=== PATIENT | female | born 1945 | race Caucasian/White ===

== ENCOUNTER 2018-05-13 20:09 | Inpatient (IN) ==
--- NOTE | 2018-05-14 01:07 | P.HPNS ---
History of Present Illness Service: NEUROSURGERY Primary Care Physician: UNKNOWN Chief Complaint: Chronic progressive low back pain History of Present Illness: I was contacted by Dr. Pérez Roberts from [facility] ER to accept in transfer, 73 yo female with an approximately 3 week history of a chronic progressive low back pain that worsened last night. [place] is s/p L4-S1 decompression and fusion about a year ago in the [facility]. She is also s/p bilateral hip surgery ( Left 06/23, Right 03/23) Doing well from all, until 3 weeks ago. She describes her LBP as radiating down BLE to level of her feet and sometimes only to the level of her knees.She relates that immobility has precluded her from emptying her bladder but denies bowel/bladder dysfunction. In addition she is on Fentanyl patches, oxycodone and a local Pain Management Physician has her on Morphine 2 tabs po. q.8h. MRI and CT scans were performed of the lumbar spine with a reported L1/2 disc herniation. I accepted her intransfer for definitive Neurosurgical evaluation and treatment. - Diagnosis (1) Low back pain of over 3 months duration (2) Low back pain of multiple sites of spine with sciatica Inpatient Certification: I certify that the inpatient services were ordered in accordance with Medicare regulations governing the order. This includes certification that hospital inpatient services are reasonable and necessary and in the case of services not specified as inpatient-only under 42 CFR 419.22(n), that they are appropriately provided as inpatient services in accordance to with the 2-midnight benchmark under 43 CFR 412.3(e) Plans for Post Hospital Care: Not yet determined Review of Systems All other systems reviewed negative except as stated [facility] - History History Provided By: Patient - Medical History Medical History: Medical History (Last Reviewed 05/14/18 @ 01:08 by Luciano Rubalcava MD) Cataract HTN (hypertension) History of hysterectomy Varicose vein of leg - Surgical History Surgical History: Surgical History (Last Reviewed 05/14/18 @ 01:08 by Luciano Rubalcava MD) Hip joint replacement status History of lumbar fusion LAP-BAND surgery status Status post complete thyroidectomy Total knee replacement status - Social History I have reviewed the patient's Social History: Yes - Tobacco History Second Hand Smoke Exposure: No Tobacco Use In Past 30 Days: No Smoking Status: Former smoker - Alcohol History How Often Do You Have a Drink Containing Alcohol: Never - Substance Use History Substance History: No History of Abuse - Immunization History Tetanus Immunization: Unsure Hx Influenza Vaccine This Season: Yes Medications and Allergies Allergies Allergy/AdvReac Type Severity Reaction Status Date / Time tramadol Allergy Severe Anaphylaxis Verified 05/13/18 23:50 moxifloxacin [From Avelox] Allergy Mild Itching, Verified 05/13/18 23:52 Generalized Home Medications Medication Instructions Recorded Confirmed Type amlodipine-benazepril 1 cap PO DAILY 05/13/18 05/13/18 History atorvastatin 10 mg PO DAILY 05/14/18 05/14/18 History carisoprodol 350 mg PO 05/14/18 05/14/18 History fentanyl 75 mcg/hr TRANSDERMAL 05/14/18 History gabapentin 300 mg PO TID 05/14/18 05/14/18 History levothyroxine [Synthroid] 137 mcg PO DAILY 05/14/18 05/14/18 History Exam Vital signs: Vital Signs 05/13/18 23:05 Temperature 98.2 F Pulse Rate 80 Respiratory Rate 18 Blood Pressure 164/79 H Pulse Oximetry 94 L Intake & Output 05/13/18 05/13/18 05/14/18 06:59 18:59 06:59 Weight 105 kg Other: Date of Last Bowel Movement 05/12/18 Weight On Admission 105 kg - Constitutional moderate distress, morbidly obese, cooperative - Routine HEENT Exam Head: Present: normocephalic, atraumatic Eye: Present: EOMI, PERRL, normal accommodation ENT: Present: mucous membranes moist, oropharynx clear - Routine Neck Exam Present: supple, full ROM, trachea midline - Routine Abdominal Exam Present: soft, normoactive bowel sounds - Routine Rectal Exam Visual: Present: normal rectal tone - Routine Exam Comments: [place] Catheter in place ( Outside Hospital) - Routine Extremities Exam Present: full ROM, pulses intact, normal capillary refill - Routine Skin Exam Present: intact - Routine Neurological Exam Present: alert, oriented X3, CN II-XII intact, normal reflexes, moving all extremities, normal tone, vision grossly intact, hearing grossly intact, normal speech - Routine Psychiatric Exam Present: normal affect, normal thought process Caprini VTE Risk Assessment Caprini VTE Risk Assessment: Moderate/High Risk (score >= 2) Caprini Risk Assessment Model: Point Value = 1 Point Value = 2 Point Value = 3 Point Value = 5 Age 41-60 Minor surgery BMI > 25 kg/m2 Swollen legs Varicose veins or History of unexplained or recurrent spontaneous Oral contraceptives or hormone replacement Sepsis (< 1 month) Serious lung disease, including pneumonia (< 1 month) Abnormal pulmonary function Acute myocardial infarction Congestive heart failure (< 1 month) History of inflammatory bowel disease Medical patient at bed rest Age 61-74 Arthroscopic surgery Major open surgery (> 45 min) Laparoscopic surgery (> 45 min) Malignancy Confined to bed (> 72 hours) Immobilizing plaster cast Central venous access Age >= 75 History of VTE Family history of VTE Factor V Leiden Prothrombin [id number] Lupus anticoagulant Anticardiolipin antibodies Elevated serum homocysteine Heparin-induced thrombocytopenia Other congenital or acquired thrombophilia Stroke (< 1 month) Elective arthroplasty Hip, pelvis, or leg fracture Acute spinal cord injury (< 1 month) Prophylaxis Regimen: Total Risk Factor Score Risk Level Prophylaxis Regimen 0-1 Low Early ambulation 2 Moderate Order ONE of the following: *Sequential Compression Device (SCD) *Heparin 5000 units SQ BID 3-4 Higher Order ONE of the following medications: *Heparin 5000 units SQ TID *Enoxaparin/Lovenox 40 mg SQ daily (WT < 150 kg, CrCl > 30 mL/min) *Enoxaparin/Lovenox 30 mg SQ daily (WT < 150 kg, CrCl > 10-29 mL/min) *Enoxaparin/Lovenox 30 mg SQ BID (WT < 150 kg, CrCl > 30 mL/min) AND/OR *Sequential Compression Device (SCD) 5 or more Highest Order ONE of the following medications: *Heparin 5000 units SQ TID (Preferred with Epidurals) *Enoxaparin/Lovenox 40 mg SQ daily (WT < 150 kg, CrCl > 30 mL/min) *Enoxaparin/Lovenox 30 mg SQ daily (WT < 150 kg, CrCl > 10-29 mL/min) *Enoxaparin/Lovenox 30 mg SQ BID (WT < 150 kg, CrCl > 30 mL/min) AND *Sequential Compression Device (SCD) Assessment and Plan - Assessment (1) Low back pain of over 3 months duration Code(s): M54.5 - Low back pain; G89.29 - Other chronic pain Status: Chronic (2) Low back pain of multiple sites of spine with sciatica Code(s): M54.40 - Lumbago with sciatica, unspecified side Status: Chronic - Plan A/P 73 year old female with 3 week history of chronic progressive low back pain with radiation to BLE down to the feet mostly occassionally knees. Neuro: Non-focal Admit to Neurosurgery Neuro Checks q 4 hrs. Pain Control L-spine flex/ext views PT/OT H&P: Quality - VTE Deep Vein Thrombosis/Pulmonary Embolism Present on Admission: No
[2018-05-14] MEDS ORDERED: Gabapentin 300 MG Capsule PO SCH (01:45)
[2018-05-14] MEDS ORDERED: Calcium Gluconate Inj 1 GM in Sodium Chlor 0.9% Inj 100 ML IV.SIG PRN (01:54)
[2018-05-14] MEDS ORDERED: Acetaminophen 325 MG Tablet PO PRN (01:54)
[2018-05-14] MEDS ORDERED: Bisacodyl 10 MG Supp RECTAL PRN (01:54)
[2018-05-14] MEDS: Methocarbamol 500 MG Tablet PO SCH ×4 (02:28→20:59)
[2018-05-14] MEDS: Senna/Docusate Sodium 8.6/50 MG Tablet PO SCH ×3 (02:29→20:59)
[2018-05-14 04:24] LABS: Baso % (Auto) 0.4 % (0.0-2.0); Eos # (Auto) 0.2 th/mm3 (0.0-0.4); Eos % (Auto) 1.7 % (0.0-4.0); Hematocrit 38.6 % (35.0-46.0); Hemoglobin 12.7 gm/dL (11.6-15.3); Lymph # (Auto) 1.1 th/mm3 (1.0-4.8); Lymph % (Auto) 10.4 % (9.0-44.0); Mean Corpuscular HGB Conc 33.1 % (32.0-36.0); Mean Corpuscular Hemoglobin 29.7 pg (27.0-34.0); Mono # (Auto) 0.7 th/mm3 (0.0-0.9); Mono % (Auto) 7.3 % (0.0-8.0); Neut # (Auto) 8.2 th/mm3 (1.8-7.7); Neut % (Auto) 80.2 % (16.0-70.0); Platelet Count 180 th/mm3 (150-450); Red Blood Count 4.29 mil/mm3 (4.00-5.30); Red Cell Distribution Width 14.1 % (11.6-17.2); White Blood Count 10.2 th/mm3 (4.0-11.0)
[2018-05-14 04:32] LABS: Activated Partial Thrombo Time 26.3 sec (23.4-31.7); Prothrombin Time 10.6 sec (9.8-11.6)
[2018-05-14 04:44] LABS: Calcium 8.1 mg/dL (8.5-10.1); Potassium 3.9 meq/L (3.5-5.1)
[2018-05-14] MEDS: Levothyroxine 112 MCG Tablet PO SCH (05:36)
[2018-05-14] MEDS: Heparin - SQ 10,000 UNITS/ML Vial SQ SCH ×3 (05:37→20:59)
[2018-05-14] MEDS: Gabapentin 400 MG Capsule PO SCH ×5 (08:04→17:22)
[2018-05-14] MEDS: amLODIPine 5 MG Tablet PO SCH (08:04)
[2018-05-14] MEDS: Lisinopril 20 MG Tablet PO SCH (08:04)
[2018-05-14] MEDS ORDERED: Non-Formulary Drug (Amlodipine-Benazepril [Amlodipine-Benazepril] 1 CAP) PO SCH (09:00)
--- NOTE | 2018-05-14 13:29 | P.PNNS ---
Subjective Interval history: HD#1 The patient is a 73 yo female with an approximately 3 week history of a chronic progressive low back pain that worsened two nights.ago She is s/p L4-S1 decompression and fusion about a year ago in the [facility]. She is also s/p bilateral hip surgery ( Left 06/23, Right 03/23) Doing well from all, until about 3 weeks ago. She describes her LBP as radiating down BLE to level of her feet and sometimes only to the level of her knees.She relates that immobility has precluded her from emptying her bladder but denies bowel/bladder dysfunction. In addition she is on Fentanyl patches, oxycodone and a local Pain Management Physician has her on Morphine 2 tabs po. q.8h. MRI and CT scans were performed of the lumbar spine with a reported L1/2 disc herniation. Overnight her pain better controlled with increased Gabapentin and Robaxin Physical Exam Vital signs: Vital Signs 05/13/18 23:05 05/14/18 04:00 05/14/18 06:50 Temperature 98.2 F 98.2 F Pulse Rate 80 65 Respiratory Rate 18 18 16 Blood Pressure 164/79 H 141/76 H Pulse Oximetry 94 L 94 L 05/14/18 08:00 05/14/18 11:27 Temperature 97.6 F 98.6 F Pulse Rate 65 79 Respiratory Rate 12 17 Blood Pressure 151/71 H 126/58 L Pulse Oximetry 94 L 95 Intake & Output 05/13/18 05/14/18 05/14/18 18:59 06:59 18:59 Output Total 600 / 600 Balance -600 / -600 Weight 105.5 kg Output: Urine 600 / 600 Other: Date of Last Bowel Movement 05/12/18 05/12/18 Weight On Admission 105 kg - Constitutional Comments: 73 yo female in moderate discomfort secondary to LBP, bilateral hip pain and radicular symptoms - Routine HEENT Exam Head: Present: normocephalic, atraumatic, tenderness of temporal artery Eye: Present: EOMI, normal accommodation ENT: Present: mucous membranes moist, oropharynx clear - Routine Neck Exam Present: supple, full ROM, normal carotid upstroke - Routine Abdominal Exam Present: soft, normoactive bowel sounds - Routine Rectal Exam Visual: Present: normal rectal tone - Routine Exam Comments: perianal sensation normal - Routine Skin Exam Present: intact - Routine Neurological Exam Neuro: MS- AAOx3 Speech- fluent CNII-XII- intact Motor 5/5, R=L, neg. drift Sensory- decreased to LT, PP in Left L5 distribution intermittently Cerebellum- WNL Gait not tested due to severe pain - Urinary Catheter Management Indwelling Urethral Catheter Cath placed during this visit: yes Reason for continuing: Acute urinary retention Insertion date: 05/13/18 Assessment and Plan - Assessment (1) Low back pain of over 3 months duration Code(s): M54.5 - Low back pain; G89.29 - Other chronic pain Status: Chronic (2) Low back pain of multiple sites of spine with sciatica Code(s): M54.40 - Lumbago with sciatica, unspecified side Status: Chronic - Plan A/P 73 year old female with 3 week history of chronic progressive low back pain with radiation to BLE down to the feet mostly occassionally knees. Neuro: Non-focal Admit to Neurosurgery Neuro Checks q 4 hrs. Pain Control L-spine flex/ext views pending emg/ncs of bilateral lower extremities PT/OT Discussed Condition With: Patient
[2018-05-15] MEDS: Levothyroxine 112 MCG Tablet PO SCH (05:12)
[2018-05-15] MEDS: Methocarbamol 500 MG Tablet PO SCH ×3 (05:12→23:13)
[2018-05-15] MEDS: Heparin - SQ 10,000 UNITS/ML Vial SQ SCH ×3 (05:13→23:12)
[2018-05-15] MEDS: Lisinopril 20 MG Tablet PO SCH (08:22)
[2018-05-15] MEDS: amLODIPine 5 MG Tablet PO SCH (08:22)
[2018-05-15] MEDS: Senna/Docusate Sodium 8.6/50 MG Tablet PO SCH ×2 (08:22→23:13)
[2018-05-15] MEDS: Gabapentin 400 MG Capsule PO SCH ×2 (08:22→15:05)
[2018-05-15] MEDS: Polyethylene Glycol 3350 17 GM Packet PO SCH ×2 (10:37→23:12)
--- NOTE | 2018-05-15 15:37 | P.PNNS ---
Subjective Interval history: HD#1 The patient is a 73 yo female with an approximately 3 week history of a chronic progressive low back pain that worsened two nights.ago She is s/p L4-S1 decompression and fusion about a year ago in the [facility]. She is also s/p bilateral hip surgery ( Left 06/23, Right 03/23) Doing well from all, until about 3 weeks ago. She describes her LBP as radiating down BLE to level of her feet and sometimes only to the level of her knees.She relates that immobility has precluded her from emptying her bladder but denies bowel/bladder dysfunction. In addition she is on Fentanyl patches, oxycodone and a local Pain Management Physician has her on Morphine 2 tabs po. q.8h. MRI and CT scans were performed of the lumbar spine with a reported L1/2 disc herniation. Overnight her pain better controlled with increased Gabapentin and Robaxin HD#2 Patient now complains of midback as well as a T-10 level back pain with radicular symptoms Physical Exam Vital signs: Vital Signs 05/14/18 16:00 05/14/18 17:23 05/14/18 19:15 Temperature 98.2 F 98.1 F Pulse Rate 71 82 Respiratory Rate 16 16 18 Blood Pressure 130/62 184/99 H Pulse Oximetry 94 L 95 05/14/18 19:17 05/14/18 20:49 05/15/18 04:05 Temperature 98.1 F 98 F Pulse Rate 81 74 62 Respiratory Rate 19 18 Blood Pressure 184/99 H 129/72 146/65 H Pulse Oximetry 92 L 93 L 05/15/18 08:00 05/15/18 11:02 Temperature 97.6 F 97.7 F Pulse Rate 63 65 Respiratory Rate 17 17 Blood Pressure 129/65 114/56 L Pulse Oximetry 92 L 95 Intake & Output 05/14/18 05/15/18 05/15/18 18:59 06:59 18:59 Intake Total 480 / 480 200 / 200 Output Total 650 / 650 1000 / 1000 375 / 375 Balance -170 / -170 -800 / -800 -375 / -375 Weight 105.5 kg Intake: Oral 480 / 480 200 / 200 Output: Urine 650 / 650 1000 / 1000 375 / 375 Other: Date of Last Bowel Movement 05/12/18 05/12/18 # Bowel Movements 0 - Constitutional moderate distress Comments: New onset mid- back pain - Routine HEENT Exam Head: Present: normocephalic, atraumatic Eye: Present: EOMI, PERRL, normal accommodation ENT: Present: mucous membranes moist, oropharynx clear - Routine Neck Exam Present: supple, full ROM - Routine Respiratory Exam Present: CTA bilaterally - Routine Cardiovascular Exam Present: RRR - Routine Abdominal Exam Present: soft, normoactive bowel sounds - Routine Rectal Exam Patient deferred: visual exam - Routine Exam Patient deferred: external exam Comments: Neuro: MS- AAOx3 Speech- fluent CNII-XII- intact Motor 5/5, R=L, neg. drift Sensory- decreased to LT, PP in Left L5 distribution intermittently Cerebellum- WNL Gait not tested due to severe pain - Routine Extremities Exam Comments: Negative CCE - Routine Skin Exam Present: intact, warm, normal turgor - Routine Psychiatric Exam Present: normal affect - Urinary Catheter Management Indwelling Urethral Catheter Cath placed during this visit: yes Reason for continuing: Acute urinary retention Insertion date: 05/13/18 Assessment and Plan - Assessment (1) Low back pain of over 3 months duration Code(s): M54.5 - Low back pain; G89.29 - Other chronic pain Status: Chronic (2) Low back pain of multiple sites of spine with sciatica Code(s): M54.40 - Lumbago with sciatica, unspecified side Status: Chronic - Plan A/P 73 year old female with 3 week history of chronic progressive low back pain with radiation to BLE down to the feet mostly occassionally knees.Now c/o new onset mid-back pain and T-10 level radicular symptoms Neuro: Non-focal Neuro Checks q 4 hrs. Pain Control, will increase Gabapentin Bowel regimen L-spine flex/ext views pending T and L-spine MRI emg/ncs of bilateral lower extremities OOB PT/OT
--- NOTE | 2018-05-15 17:27 | XR ---
EXAM DATE: 05/15/2018 5:23 PM EST AGE/SEX: 73 years / Female INDICATIONS: Left hip pain from unknown injury. CLINICAL DATA: This is the patient's initial encounter. Patient reports that signs and symptoms have been present for 1 day and indicates a pain score of Nonresponsive. MEDICAL/SURGICAL HISTORY: None. . Left hip replacement. Right hip replacement. Lower back surge ry. COMPARISON: No prior exams available for comparison. FINDINGS: AP and oblique views of the left hip were obtained as well as an AP view of the pelvis and demonstrat e the patient is status post a lateral hip arthroplasty. The femoral and acetabular components are in tact with no evidence of fracture or loosening. There is mild osteopenia. Postoperative changes are n oted in the pelvis. Postoperative changes are also noted in the lower lumbar spine. CONCLUSION: Status post bilateral hip arthroplasties with no underlying bony abnormality. Electronically signed by: Carlos Omalley MD 05/15/2018 5:25 PM EST
--- NOTE | 2018-05-15 17:32 | XR ---
EXAM DATE: 05/15/2018 5:26 PM EST AGE/SEX: 73 years / Female INDICATIONS: Right hip pain from unknown injury. CLINICAL DATA: This is the patient's initial encounter. Patient reports that signs and symptoms have been present for 1 day and indicates a pain score of Nonresponsive. MEDICAL/SURGICAL HISTORY: None. . Left hip replacement. Right hip replacement. Lower back surge ry. COMPARISON: No prior exams available for comparison. FINDINGS: AP and frog-leg lateral views of the right hip were obtained and demonstrate the patient is status po st right hip arthroplasty. The acetabular and femoral components are intact and in normal alignment. There is mild osteopenia. There is no evidence of fracture or underlying bony abnormality. The soft t issues appear unremarkable. CONCLUSION: Status post right hip arthroplasty with no underlying bony abnormality. Electronically signed by: Carlos Omalley MD 05/15/2018 5:30 PM EST
--- NOTE | 2018-05-15 17:34 | XR ---
EXAM DATE: 05/15/2018 5:29 PM EST AGE/SEX: 73 years / Female INDICATIONS: Lower back pain from unknown injury. CLINICAL DATA: This is the patient's initial encounter. Patient reports that signs and symptoms have been present for 1 day and indicates a pain score of 10/10. MEDICAL/SURGICAL HISTORY: None. . Left hip replacement. Right hip replacement. Lower back surge ry. COMPARISON: No prior exams available for comparison. FINDINGS: AP and lateral views of the lumbar spine were obtained and demonstrate that the patient is status pos t laminectomy and fusion at the L4-5 and L5-S1 levels with bilateral pedicle screws and posterior fix ation rods. Diffuse degenerative disc changes are noted with disc space narrowing and hypertrophic ch gómez with sparing at the L5-S1 level. There is mild osteopenia with no acute fracture. There is a mil d scoliosis. The sacrum is intact. CONCLUSION: 1. Status post laminectomy and fusion at the L4-5 and L5-S1 levels. 2. Moderate degenerative disc change in the lower thoracic and lumbar spine with sparing at the L5-S 1 level. 3. Osteopenia and mild scoliosis. Electronically signed by: Carlos Omalley MD 05/15/2018 5:33 PM EST
[2018-05-15] MEDS: Gabapentin 300 MG Capsule PO SCH (18:43)
[2018-05-16] MEDS: Levothyroxine 112 MCG Tablet PO SCH (05:20)
[2018-05-16] MEDS: Heparin - SQ 10,000 UNITS/ML Vial SQ SCH ×3 (05:21→23:34)
[2018-05-16] MEDS: Methocarbamol 500 MG Tablet PO SCH ×3 (05:21→23:32)
[2018-05-16] MEDS: Gabapentin 300 MG Capsule PO SCH ×2 (08:18→13:02)
[2018-05-16] MEDS: amLODIPine 5 MG Tablet PO SCH (08:18)
[2018-05-16] MEDS: Senna/Docusate Sodium 8.6/50 MG Tablet PO SCH ×2 (08:18→23:33)
[2018-05-16] MEDS: Lisinopril 20 MG Tablet PO SCH (08:19)
[2018-05-16] MEDS: Polyethylene Glycol 3350 17 GM Packet PO SCH ×2 (08:19→23:33)
--- NOTE | 2018-05-16 12:19 | MR ---
EXAM DATE: 05/16/2018 11:59 AM EST AGE/SEX: 73 years / Female INDICATIONS: . New onset mid-back pain with radiculopathy. Degeneration of disc. CLINICAL DATA: This is the patient's subsequent encounter. Patient reports that signs and symptoms h ave been present for 3 days and indicates a pain score of 7/10. MEDICAL/SURGICAL HISTORY: None. Fusion, lumbar. Lap band. Bilateral hip replacements. COMPARISON: OUT, CT OUTSIDE FACILITY, 05/13/2018. . TECHNIQUE: Multiplanar, multisequence MRI of the thoracic spine was performed. FINDINGS: Vertebrae: Normal vertebral body height. Cavernous hemangiomas are noted in the T5, T10 and T12 vert ebral bodies with high signal on T1-weighted images. There is mild marrow edema in the L1 vertebral b jazmine. Alignment: Normal. Discs: Diffuse degenerative disc changes are present with desiccation, disc space narrowing and mild hypertrophic changes. Anterior extradural defects are noted at multiple levels. Cord: Normal position and configuration. T1-T2: There is a mild annular disc bulge with minimal flattening of the anterior thecal sac and no focal protrusion. T2-T3: There is a mild annular disc bulge with minimal flattening of the anterior thecal sac and no focal protrusion. T3-T4: There is a mild annular disc bulge with mild flattening of the anterior thecal sac and no foc al protrusion. T4-T5: Mild disc bulge with minimal flattening of the anterior thecal sac. T5-T6: The thecal sac has a normal diameter. No evidence of disc bulge or protrusion. T6-T7: The thecal sac has a normal diameter. No evidence of disc bulge or protrusion. T7-T8: The thecal sac has a normal diameter. No evidence of disc bulge or protrusion. T8-T9: Mild annular disc bulge with mild flattening of the anterior thecal sac and no focal protrusi on. T9-T10: The thecal sac has a normal diameter. No evidence of disc bulge or protrusion. T10-T11: The thecal sac has a normal diameter. No evidence of disc bulge or protrusion. T11-T12: The thecal sac has a normal diameter. No evidence of disc bulge or protrusion. A large hi gh signal mass is noted in the liver which is lobular and measures up to approximately 5.8 x 4.4 cm. T12-L1: Broad-based posterior disc osteophyte complex with mass effect on the anterior thecal sac an d no mass effect on the cord. CONCLUSION: 1. Degenerative disc changes with disc bulges at multiple levels with mass effect on the anterior th ecal sac and no definite mass effect on the cord. 2. Broad-based disc osteophyte complex at T12-L1 with mass effect on the anterior thecal sac. 3. Large mass in the medial right lobe of the liver with high signal on the T2-weighted images. This is nonspecific but may represent a large cavernous hemangioma. This should be correlated with any ol d prior studies. Electronically signed by: Carlos Omalley MD 05/16/2018 12:18 PM EST
[2018-05-16] MEDS ORDERED: Gadobutrol PF 10 MMOL/10 ML Vial (for RAD) IV.SIG ONE (12:42)
--- NOTE | 2018-05-16 13:36 | MR ---
EXAM DATE: 05/16/2018 12:35 PM EST AGE/SEX: 73 years / Female INDICATIONS: Pain. Post L4-S1 fusion. CLINICAL DATA: This is the patient's subsequent encounter. Patient reports that signs and symptoms h ave been present for 3 days and indicates a pain score of 7/10. MEDICAL/SURGICAL HISTORY: None. Fusion, lumbar. Lap band. Bilateral hip surgery. COMPARISON: No prior exams available for comparison. TECHNIQUE: Multiplanar, multisequence MRI examination of the lumbar spine was performed without and with 10 ml Gadavist (gadobutrol) contrast as a single exam dose. FINDINGS: ALIGNMENT: Vertebral bodies are satisfactorily aligned without evidence of listhesis. FACET AND OSSEOUS STRUCTURES: Postsurgical changes following laminectomy and fusion are identified in the lower lumbar spine. Laminectomy defect extending from mid L4 through the top of S1 is noted. Pos terior fusion apparatus consisting of parallel rods with transpedicular fixation screws are noted fro m L4 through S1. A fluid collection is identified along the laminectomy defect posterior to the thecal sac. The collec tion measures 4.5 cm in length by 1.7 cm in depth and 3.3 cm in width. There is no evidence of abnorm al enhancement associated with the collection. Vertebral body height is otherwise well-maintained. There is no evidence of acute fracture, bone mar row edema or destructive changes. Moderate facet arthropathy is identified at L1-2, L2-3 and L3-4. There is joint space narrowing with mild hypertrophy. INTERVERTEBRAL DISC SPACES: Significant degenerative disc disease is noted. L1-2: Moderate disc space narrowing with mild broad-based disc bulge and marginal disc osteophyte com plex. There is no evidence of significant epidural disc herniation, foraminal encroachment or spinal stenosis. L2-3: Moderate degenerative disc disease with significant disc space narrowing. There is marginal dis c osteophyte complex with mild foraminal stenosis on the right and moderate foraminal stenosis on the left. There is no significant epidural disc herniation. L3-4: Mild to moderate degenerative disc disease with disc space narrowing. Mild broad-based disc ost eophyte complex is identified. There is significant posterior epidural effacement from thickened liga mentum flavum resulting in mild spinal stenosis. L4-5: Advanced degenerative disc disease with collapse of the disc where there is marginal spondylosi s. There is no evidence of disc herniation. Mild foraminal stenosis is seen bilaterally. Spinal canal is widely patent. L5-S1: Vertebral disc is unremarkable. Increased fat is identified in the anterior epidural space. Th ere is no evidence of spinal stenosis or significant foraminal encroachment. NEUROLOGIC STRUCTURES: A soft tissue mass is identified within the left side of the spinal canal at t he L2 level. The mass begins at the L1-2 disc space and extends inferiorly to the lower margin of L2. The mass appears to be extradural in location since there is no widening of the thecal sac at the le marci the mass and there is rightward displacement of the nerve roots. Rim enhancement is identified wi thin the mass following administration of contrast. The mass measures 1.3 x 1 x 2.1 cm in size. Clumping of the nerve roots within the thecal sac is identified through the laminectomy site. Mild ne rve root enhancement is noted. CONCLUSION: 1. Extradural soft tissue mass with rim enhancement located in the left lateral spinal canal at the L2 level. Differential diagnoses would include a neurogenic tumor, atypical disc herniation or metast atic disease. 2. Clumped enhancing nerve roots in the lower thecal sac through the laminectomy defect characterist ic of arachnoiditis. 3. Mild central spinal stenosis at L3-4 predominantly from hypertrophic facet arthropathy. 4. Posterior post laminectomy fluid collection characteristic of a postsurgical seroma. There is no discrete connection with the spinal canal or thecal sac. 5. Status post laminectomy and fusion from L4 through S1. Electronically signed by: Darryl Loyd MD 05/16/2018 1:34 PM EST
[2018-05-16] MEDS ORDERED: ceFAZolin 2 GM Premix Inj 2 GM/50 ML PIGGYBACK IV.SIG PRN (14:50)
--- NOTE | 2018-05-16 16:25 | XR ---
EXAM DATE: 05/16/2018 4:21 PM EST AGE/SEX: 73 years / Female INDICATIONS: Evaluate for pneumonia, pneumothorax, or communicable disease. Per op for back surgery. CLINICAL DATA: This is the patient's initial encounter. Patient reports that signs and symptoms have been present for 4 - 6 days and indicates a pain score of 10/10. MEDICAL/SURGICAL HISTORY: None. . Fusion, lumbar. Lap band. Bilateral hip surgery. COMPARISON: No prior exams available for comparison. FINDINGS: AP and lateral views of the chest demonstrate the lungs to be symmetrically aerated without evidence of mass, infiltrate or effusion. Heart upper limits of normal in size. The cardiomediastinal contours are unremarkable. Osseous structures are intact. Degenerative changes thoracic spine. CONCLUSION: No acute cardiopulmonary disease Electronically signed by: Moshe Moe MD 05/16/2018 4:24 PM EST
[2018-05-16 16:47] LABS: Baso # (Auto) 0.1 th/mm3 (0.0-0.2); Baso % (Auto) 0.6 % (0.0-2.0); Eos # (Auto) 0.2 th/mm3 (0.0-0.4); Hematocrit 40.3 % (35.0-46.0); Lymph # (Auto) 1.1 th/mm3 (1.0-4.8); Lymph % (Auto) 13.6 % (9.0-44.0); Mean Corpuscular HGB Conc 34.7 % (32.0-36.0); Mean Corpuscular Hemoglobin 31.3 pg (27.0-34.0); Mean Platelet Volume 9.2 fL (7.0-11.0); Mono # (Auto) 0.6 th/mm3 (0.0-0.9); Mono % (Auto) 6.9 % (0.0-8.0); Neut # (Auto) 6.4 th/mm3 (1.8-7.7); Neut % (Auto) 76.9 % (16.0-70.0); Platelet Count 225 th/mm3 (150-450); Red Blood Count 4.47 mil/mm3 (4.00-5.30); Red Cell Distribution Width 14.1 % (11.6-17.2); White Blood Count 8.4 th/mm3 (4.0-11.0)
[2018-05-16 17:44] LABS: Carbon Dioxide 35.3 meq/L (21.0-32.0)
[2018-05-16 23:51] LABS: Bilirubin,Urine Negative (Negative); Clarity,Urine Clear (Clear); Color,Urine Yellow (Yellw/Straw); Glucose,Urine (UA) Negative (Negative); Leukocyte Esterase,Urine Negative (Negative); Mucus,Urine Few /lpf (Occasional); Nitrite,Urine Negative (Negative); Specific Gravity,Urine 1.006 (1.002-1.035)
[2018-05-17] MEDS: Gabapentin 300 MG Capsule PO SCH ×4 (06:51→17:43)
[2018-05-17] MEDS: Methocarbamol 500 MG Tablet PO SCH ×3 (06:51→21:50)
[2018-05-17] MEDS ORDERED: Bupivacaine 0.25% Inj 50 ML MDV Vial ONE (07:06)
[2018-05-17] MEDS ORDERED: Thrombin Topical Soln 5,000 UNIT Vial TOPICAL ONE (07:06)
[2018-05-17] MEDS ORDERED: Gelatin Size 100 Topical Foam ONE (07:06)
[2018-05-17] MEDS ORDERED: Lidocaine 1%/Epinephrine 1:100,000 Inj 50 ML Vial ONE (07:06)
[2018-05-17] MEDS: Heparin - SQ 10,000 UNITS/ML Vial SQ SCH ×3 (07:17→21:51)
[2018-05-17] MEDS: Levothyroxine 112 MCG Tablet PO SCH (07:18)
[2018-05-17 08:23] LABS: Activated Partial Thrombo Time 26.1 sec (23.4-31.7); INR 1.1 Ratio; Prothrombin Time 10.8 sec (9.8-11.6)
[2018-05-17] MEDS ORDERED: BACITRACIN OTHER ONE (08:30)
[2018-05-17] MEDS ORDERED: SOD CHLORIDE 0.9% OTHER ONE (08:30)
[2018-05-17] MEDS ORDERED: Propofol Inj 500 MG/50 ML Vial ONE (09:19)
[2018-05-17] MEDS ORDERED: ceFAZolin 1 GM Premix Inj 2 GM/100 ML PIGGYBACK IV.SIG ONE (10:05)
[2018-05-17] MEDS ORDERED: MethylPREDNISolone Sod Succinate Inj 125 MG/2 ML Vial ONE (10:05)
[2018-05-17] MEDS ORDERED: RESP: Albuterol Concentrated 2.5 MG/0.5 ML Neb ONE (10:23)
--- NOTE | 2018-05-17 11:43 | XR ---
EXAM DATE: 05/17/2018 11:29 AM EST AGE/SEX: 73 years / Female INDICATIONS: L1-L2 laminectomy, level localization. CLINICAL DATA: This is the patient's initial encounter. Patient reports that signs and symptoms have been present for 1 day and indicates a pain score of Nonresponsive. MEDICAL/SURGICAL HISTORY: Non-responsive. Non-responsive. [place] [facility] [facility] [place] W [place] W/O CONTRAST, [place]/16/2018. . FINDINGS: Metallic probe directed at the L1-2 interspace. CONCLUSION: Probe directed towards the L1-2 interspace Electronically signed by: Lorenzo Carranza MD 05/17/2018 11:42 AM EST
[2018-05-17] MEDS ORDERED: Sugammadex Inj 200 MG/2 ML Vial IV.PUSH ONE (12:07)
[2018-05-17] MEDS ORDERED: Menthol 5.8 MG Lozenge BUCCAL PRN (12:44)
[2018-05-17] MEDS ORDERED: Morphine Sulfate Inj 2 MG/ML Vial IV.PUSH PRN (12:44)
[2018-05-17] MEDS ORDERED: Bisacodyl 10 MG Supp RECTAL PRN (12:44)
[2018-05-17] MEDS ORDERED: Zolpidem Tartrate 5 MG Tablet PO PRN (12:44)
--- NOTE | 2018-05-17 12:52 | P.PCN ---
Date of procedure: 05/17/18 Pre-op diagnosis: Left L1/2 facet cyst and herniated disc Post-op diagnosis: other Procedure: Left hemilaminectomy, partial medial facetectomy and microdiscectomy Anesthesia: VISHAL Surgeon: Luciano Rubalcava Baby Attendant: Pancho Stafford Estimated blood loss (mL): 75 IV fluids (mL): 1,600 Urine output (mL): 150 Pathology: other Condition: stable Disposition: floor (large old extruded disc material, multiple fragments, with large adherent scar formation between ligamentum flavu, dura and disc.)
--- NOTE | 2018-05-17 13:00 | P.PNNS ---
Subjective Interval history: HD#1 The patient is a 73 yo female with an approximately 3 week history of a chronic progressive low back pain that worsened two nights.ago She is s/p L4-S1 decompression and fusion about a year ago in the [facility]. She is also s/p bilateral hip surgery ( Left 06/23, Right 03/23) Doing well from all, until about 3 weeks ago. She describes her LBP as radiating down BLE to level of her feet and sometimes only to the level of her knees.She relates that immobility has precluded her from emptying her bladder but denies bowel/bladder dysfunction. In addition she is on Fentanyl patches, oxycodone and a local Pain Management Physician has her on Morphine 2 tabs po. q.8h. MRI and CT scans were performed of the lumbar spine with a reported L1/2 disc herniation. Overnight her pain better controlled with increased Gabapentin and Robaxin HD#2 Patient now complains of midback as well as a T-10 level back pain with radicular symptoms HD#3 T and L-spine imaging studies reviewed suspect combination facet joint and extruded disc material at neural foramen on the Left L1/2. Physical Exam Vital signs: Vital Signs 05/16/18 16:00 05/16/18 20:00 05/17/18 00:00 Temperature 97.8 F 98.1 F 97.7 F Pulse Rate 82 81 88 Respiratory Rate 18 20 20 Blood Pressure 136/63 179/69 H 129/61 Pulse Oximetry 91 L 95 97 05/17/18 04:00 05/17/18 08:00 Temperature 97.6 F 98.2 F Pulse Rate 67 69 Respiratory Rate 20 12 Blood Pressure 156/70 H 135/62 Pulse Oximetry 93 L 95 Intake & Output 05/16/18 05/17/18 05/17/18 18:59 06:59 18:59 Intake Total 0 / 0 1500 / 1500 Output Total 400 / 400 850 / 850 275 / 275 Balance -400 / -400 -850 / -850 1225 / 1225 Weight 103.7 kg Intake: Oral 0 / 0 Anesthesia Amount 1500 / 1500 Output: Urine 850 / 850 Stool 400 / 400 Estimated Blood Loss 75 / 75 Urine Amount (Catheter) 200 / 200 Indwelling Urethral Catheter 200 / 200 Other: Date of Last Bowel Movement 05/16/18 # Bowel Movements 2 4 - Constitutional moderate distress, morbidly obese Comments: severe mid- and low-back pain - Routine HEENT Exam Head: Present: normocephalic, atraumatic Eye: Present: EOMI, PERRL ENT: Present: mucous membranes moist, oropharynx clear - Routine Neck Exam Present: supple, full ROM, trachea midline - Routine Cardiovascular Exam Present: RRR - Routine Abdominal Exam Present: soft, normoactive bowel sounds - Routine Extremities Exam Comments: Negative CCE - Routine Skin Exam Present: intact - Routine Neurological Exam Present: alert, oriented X3, CN II-XII intact, normal reflexes, moving all extremities, normal tone, vision grossly intact, hearing grossly intact, normal speech - Detailed Neurological Exam: Coma Scale Eye Opening: Spontaneous Verbal Response: Oriented Motor Response: Obey commands [place] Coma Scale Total: 15 - Routine Psychiatric Exam Present: normal affect, normal thought process, cooperative, unable to assess - Urinary Catheter Management Indwelling Urethral Catheter Cath placed during this visit: yes Urethral indwelling: Yes Reason for continuing: Acute urinary retention Insertion date: 05/13/18 Assessment and Plan - Assessment (1) Low back pain of over 3 months duration Code(s): M54.5 - Low back pain; G89.29 - Other chronic pain Status: Chronic (2) Low back pain of multiple sites of spine with sciatica Code(s): M54.40 - Lumbago with sciatica, unspecified side Status: Chronic - Plan A/P 73 year old female with 3 week history of chronic progressive low back pain with radiation to BLE down to the feet mostly occassionally knees.Now c/o new onset mid-back pain and T-10 level radicular symptoms Neuro: Non-focal Neuro Checks q 4 hrs. Pain Control, will increase Gabapentin Bowel regimen L-spine flex/ext views pending T and L-spine MRI shows left L1/2 herniated disc and possible facet cyst. emg/ncs of bilateral lower extremities OOB PT/OT
[2018-05-17] MEDS ORDERED: fentaNYL Citrate Inj 100 MCG/2 ML Ampul ONE (13:01)
[2018-05-17] MEDS ORDERED: Morphine Inj 4 MG/ML Vial ONE (13:01)
[2018-05-17] MEDS ORDERED: *morphine SULFATE 10 MG/ML PERIprocedure ONLY ONE (13:07)
[2018-05-17] MEDS: amLODIPine 5 MG Tablet PO SCH (14:29)
[2018-05-17] MEDS: Lisinopril 20 MG Tablet PO SCH (14:29)
[2018-05-17] MEDS: Polyethylene Glycol 3350 17 GM Packet PO SCH ×2 (14:30→20:20)
--- NOTE | 2018-05-17 16:27 | P.CON ---
History of Present Illness Service: [facility] Consult date: 05/17/18 Requesting Physician: Pancho Stafford Reason for Consult: Postoperative management Primary Care Provider: UNKNOWN Chief Complaint: Chronic progressive low back pain History of Present Illness: 73-year-old female with past medical history significant for hypertension, chronic back pain for which she follows up with pain management, bilateral hip surgery and cataracts who originally presented to the ER in [facility] due to progressive worsening lower back pain. Patient has a history of L4-S1 decompression and fusion about a year ago in [place]. Patient also had bilateral hip surgery with latest one being the right side in March of this year. Apparently about 3 weeks prior to admission patient began complaining of lower back pain radiating down lower extremities. MRI and CT scans of the spine with L1/2 disc herniation he was admitted under neurovascular services for further evaluation and treatment. Patient has been initially treated with gabapentin as well as Robaxin however began to complain of radicular symptoms. MRI-T spine of spine with degenerative disc changes with disc bulges at multiple levels with mass-effect on the anterior thecal sac and no definite mass effect on the cord. Broad-based osteophyte, at T12-L1 with mass-effect on the anterior thecal sac. Large mass in the right lobe of the liver with high signals on T2 weighted images. Could be nonspecific but may represent large cavernous hemangioma. MRI of L-spine with extradural soft tissue mass with rim enhancement located on the left lateral spinal canal at the L2 level. Clumped enhancing nerve root at the lower thecal sac to laminectomy defects characteristic of arachnoiditis. Mild central spinal stenosis, post laminectomy fluid collection characteristic of postsurgical seroma. Neurosurgery suspected combination facet joint and extruded disc material 4 Moshe on the left L1/2. Patient underwent left hemilaminectomy, partial medial facetectomy and microdiscectomy on 05/[address] Rubalcava. [facility] now consulted to assist with postsurgical management. Patient is seen and examined resting in bed comfortably and appears to be in no acute distress. At the moment she is complaining of right lower back/hip pain. Reports pain is worse when moving, subsides with rest. Patient denies any lower extremity numbness or pain. She denies any fevers, chills, nausea, vomiting, diarrhea, cough, shortness of breath or chest pain. Review of Systems All other systems reviewed negative except as stated in HPI PMFSH - History History Provided By: Patient, Medical Record - Medical History Medical History: Medical History (Last Reviewed 05/17/18 @ 17:53 by Sally Wsahington) Cataract HTN (hypertension) History of hysterectomy Varicose vein of leg - Surgical History Surgical History: Surgical History (Last Reviewed 05/17/18 @ 17:53 by Sally Washington) Hip joint replacement status History of lumbar fusion LAP-BAND surgery status Status post complete thyroidectomy Total knee replacement status - Family History Family History: Family History (Last Updated 05/17/18 @ 17:54 by Sally Washington) Father Lung cancer Mother Lung cancer Sister Breast cancer - Social History I have reviewed the patient's Social History: Yes - Tobacco History Second Hand Smoke Exposure: No Tobacco Use In Past 30 Days: No Smoking Status: Former smoker - Alcohol History How Often Do You Have a Drink Containing Alcohol: Never - Substance Use History Substance History: No History of Abuse - Immunization History Tetanus Immunization: Unsure Hx Influenza Vaccine This Season: Yes Medications and Allergies Active Medications: Active Medications Acetaminophen (Tylenol) 650 mg PO Q4H PRN PRN Reason: TEMPERATURE > 101.5 F Hydrocodone Bitart/Acetaminophen ([place] 10/325) 2 tab PO Q4H PRN PRN Reason: PAIN SCALE 6 TO 10 Last Admin: 05/15/18 18:44 Dose: 2 tab Al Hydroxide/Mg Hydroxide (Milk Of [place]) 30 ml PO Q12H PRN PRN Reason: Mild Constipation Albuterol (Albuterol Neb (Prn)) 2.5 mg NEB Q4HR NEB PRN PRN Reason: WHEEZING Amlodipine Besylate (Norvasc) 5 mg PO DAILY [facility] Last Admin: 05/17/18 14:29 Dose: 5 mg Atorvastatin Calcium (Lipitor) 10 mg PO DAILY [facility] Last Admin: 05/17/18 14:29 Dose: 10 mg Bisacodyl (Dulcolax Supp) 10 mg RECTAL DAILY PRN PRN Reason: SEVERE CONSITIPATION Cyclobenzaprine HCl (Flexeril) 10 mg PO Q8H PRN PRN Reason: MUSCLE SPASM Gabapentin (Neurontin) 600 mg PO TID [facility] Last Admin: 05/17/18 14:29 Dose: 600 mg Heparin Sodium (Porcine) (Heparin Inj) 5,000 units SQ Q8HR [facility] Last Admin: 05/17/18 14:15 Dose: Not Given Calcium Gluconate 1 gm/ Sodium (Chloride) 110 mls @ 110 mls/hr IV.SIG UNSCH PRN PRN Reason: SEE LABEL COMMENTS Cefazolin Sodium/Dextrose (Ancef 2 Gm Premix Inj) 2 gm in 50 mls @ 100 mls/hr IV.SIG REGULATORY AUDITOR PRN PRN Reason: Pre-op Stop: 05/20/18 14:49 Lactulose (Lactulose Liq) 30 ml PO DAILY PRN PRN Reason: SEVERE CONSITIPATION Levothyroxine Sodium (Synthroid) 25 mcg PO DAILY@0600 [facility] Last Admin: 05/17/18 06:51 Dose: 25 mcg Levothyroxine Sodium (Synthroid) 112 mcg PO DAILY@0600 [facility] Last Admin: 05/17/18 07:18 Dose: 112 mcg Lisinopril (Prinivil) 20 mg PO DAILY [facility] Last Admin: 05/17/18 14:29 Dose: 20 mg Menthol ([place]) 1 lozenge BUCCAL UNSCH PRN PRN Reason: SORE THROAT Methocarbamol (Robaxin) 750 mg PO Q8HR [facility] Last Admin: 05/17/18 14:29 Dose: 750 mg Miscellaneous Information (Misc Nursing Information) 0 each OTHER UNSCH PRN PRN Reason: SEE LABEL COMMENTS Stop: 05/18/18 12:54 Morphine Sulfate (Morphine Inj) 2 mg IV.PUSH Q2H PRN PRN Reason: Pain Scale 1 to 5 Ondansetron HCl (Zofran Inj) 4 mg IV.PUSH Q6H PRN PRN Reason: NAUSEA OR VOMITING Oxycodone HCl (Roxicodone) 10 mg PO Q4H PRN PRN Reason: FOR BREAKTHROUGH PAIN Last Admin: 05/17/18 04:49 Dose: 10 mg Polyethylene Glycol (Miralax) 17 gm PO BID [facility] Last Admin: 05/17/18 14:30 Dose: Not Given Senna/Docusate Sodium (Aura-Colace) 1 tab PO BID [facility] Sennosides (Senokot) 17.2 mg PO Q12H PRN PRN Reason: Moderate Constipation Zolpidem Tartrate (Ambien) 5 mg PO HS PRN PRN Reason: INSOMNIA Allergies Allergy/AdvReac Type Severity Reaction Status Date / Time tramadol Allergy Severe Anaphylaxis Verified 05/13/18 23:50 moxifloxacin [From Avelox] Allergy Mild Itching, Verified 05/13/18 23:52 Generalized Home Medications Medication Instructions Recorded Confirmed Type amlodipine-benazepril 1 cap PO DAILY 05/13/18 05/13/18 History atorvastatin 10 mg PO DAILY 05/14/18 05/14/18 History carisoprodol 350 mg PO 05/14/18 05/14/18 History fentanyl 75 mcg/hr TRANSDERMAL 05/14/18 History gabapentin 300 mg PO TID 05/14/18 05/14/18 History levothyroxine [Synthroid] 137 mcg PO DAILY 05/14/18 05/14/18 History Physical Exam Vital signs: Vital Signs 05/16/18 20:00 05/17/18 00:00 05/17/18 04:00 Temperature 98.1 F 97.7 F 97.6 F Pulse Rate 81 88 67 Respiratory Rate 20 20 20 Blood Pressure 179/69 H 129/61 156/70 H Pulse Oximetry 95 97 93 L 05/17/18 08:00 05/17/18 12:51 05/17/18 13:00 Temperature 98.2 F 97.6 F Pulse Rate 69 83 85 Respiratory Rate 12 14 18 Blood Pressure 135/62 118/56 L 122/60 Pulse Oximetry 95 94 L 98 05/17/18 13:15 05/17/18 13:30 05/17/18 13:45 Temperature 97.5 F L Pulse Rate 86 86 87 Respiratory Rate 13 18 14 Blood Pressure 132/66 139/71 143/75 H Pulse Oximetry 98 95 98 05/17/18 14:00 05/17/18 14:20 05/17/18 15:49 Temperature 97.3 F L Pulse Rate 83 Respiratory Rate 12 Blood Pressure 132/61 Pulse Oximetry 97 93 L 93 L Intake & Output 05/16/18 05/17/18 05/17/18 18:59 06:59 18:59 Intake Total 0 / 0 1500 / 1500 Output Total 400 / 400 850 / 850 275 / 275 Balance -400 / -400 -850 / -850 1225 / 1225 Weight 103.7 kg Intake: Oral 0 / 0 Anesthesia Amount 1500 / 1500 Output: Urine 850 / 850 Stool 400 / 400 Estimated Blood Loss 75 / 75 Urine Amount (Catheter) 200 / 200 Indwelling Urethral Catheter 200 / 200 Other: Date of Last Bowel Movement 05/16/18 # Bowel Movements 2 4 Narrative: GENERAL: Well-nourished obese female resting in bed comfortably in no acute distress. SKIN: Warm and dry. HEAD: Atraumatic. Normocephalic. EYES: Pupils equal and round. No scleral icterus. No injection or drainage. ENT: No nasal bleeding or discharge. Mucous membranes pink and moist. NECK: Trachea midline. No JVD. CARDIOVASCULAR: Regular rate and rhythm. RESPIRATORY: No accessory muscle use. Clear to auscultation. Breath sounds equal bilaterally. GASTROINTESTINAL/: Abdomen soft, non-tender, nondistended. + Bowel sounds. [place] catheter draining clear yellow urine. MUSCULOSKELETAL: Extremities without clubbing, cyanosis, or edema. No obvious deformities. Back dressing dry and intact. Bilateral lower extremity positive movement, sensation, good pulses. NEUROLOGICAL: Awake, alert, oriented x3. No obvious cranial nerve deficits. Motor grossly within normal limits. Normal speech. PSYCHIATRIC: Appropriate mood and affect; insight and judgment normal. - Urinary Catheter Management Indwelling Urethral Catheter Cath placed during this visit: yes Urethral indwelling: Yes Reason for continuing: Acute urinary retention Insertion date: 05/13/18 Results - Labs CBC & Chem 7: 05/16/18 15:50 05/16/18 15:50 Labs: Laboratory Results - last 24 hr 05/16/18 05/16/18 05/16/18 15:50 15:50 15:50 WBC 8.4 RBC 4.47 Hgb 14.0 Hct 40.3 MCV 90.0 MCH 31.3 MCHC 34.7 RDW 14.1 Plt Count 225 MPV 9.2 Neut % (Auto) 76.9 H Lymph % (Auto) 13.6 [place] % (Auto) 6.9 Eos % (Auto) 2.0 Baso % (Auto) 0.6 Neut # (Auto) 6.4 Lymph # (Auto) 1.1 [place] # (Auto) 0.6 Eos # (Auto) 0.2 Baso # (Auto) 0.1 WBC Differential . Differential Comment Auto diff final PT INR APTT Sodium 138 Potassium 4.0 Chloride 98 Carbon Dioxide 35.3 H Anion Gap 5 BUN 7 Creatinine 0.79 Estimated GFR 72 L Random Glucose 130 H Calcium 9.0 Urine Color Urine Clarity Urine pH Ur Specific [place] Urine Protein Urine Glucose (UA) Urine Ketones Urine Occult Blood Urine Nitrate Urine Bilirubin Urine Urobilinogen Ur Leukocyte Esterase Urine RBC Urine WBC Urine Mucus Micro UA Comment Ur Microscopic Review Urine Culture Comments Blood Type A Positive Blood Type Recheck Required Antibody Screen Negative 05/16/18 05/17/18 23:15 07:55 WBC RBC Hgb Hct MCV MCH MCHC RDW Plt Count MPV Neut % (Auto) Lymph % (Auto) [place] % (Auto) Eos % (Auto) Baso % (Auto) Neut # (Auto) Lymph # (Auto) [place] # (Auto) Eos # (Auto) Baso # (Auto) WBC Differential Differential Comment PT 10.8 INR 1.1 APTT 26.1 Sodium Potassium Chloride Carbon Dioxide Anion Gap BUN Creatinine Estimated GFR Random Glucose Calcium Urine Color Yellow Urine Clarity Clear Urine pH 7.0 Ur Specific [place] 1.006 Urine Protein Negative Urine Glucose (UA) Negative Urine Ketones Negative Urine Occult Blood Small H Urine Nitrate Negative Urine Bilirubin Negative Urine Urobilinogen Less than 2 Ur Leukocyte Esterase Negative Urine RBC 1 Urine WBC 2 Urine Mucus Few H Micro UA Comment Cath-culture not ind Ur Microscopic Review Not Reportable Urine Culture Comments Cath-cult not ind Blood Type Blood Type Recheck Antibody Screen - Imaging Impressions Chest X-Ray 05/16/18 15:13 CONCLUSION: No acute cardiopulmonary disease Lumbar Spine X-Ray 05/17/18 00:00 CONCLUSION: Probe directed towards the L1-2 interspace Assessment and Plan - Plan 73-year-old female with past medical history significant for hypertension, chronic back pain for which she follows up with pain management, bilateral hip surgery and cataracts who originally presented to the ER in [facility] due to progressive worsening lower back pain. Patient transferred to [facility] [place] under neurovascular surgery care. [facility] consulted to assist with medical management postoperatively. Lower back pain with sciatica -MRI-T spine of spine with degenerative disc changes with disc bulges at multiple levels with mass-effect on the anterior thecal sac and no definite mass effect on the cord. Broad-based osteophyte, at T12-L1 with mass-effect on the anterior thecal sac. Large mass in the right lobe of the liver with high signals on T2 weighted images. Could be nonspecific but may represent large cavernous hemangioma. -MRI of L-spine with extradural soft tissue mass with rim enhancement located on the left lateral spinal canal at the L2 level. Clumped enhancing nerve root at the lower thecal sac to laminectomy defects characteristic of arachnoiditis. Mild central spinal stenosis, post laminectomy fluid collection characteristic of postsurgical seroma. -Neurosurgery following and suspected combination facet joint and extruded disc material 4 Moshe on the left L1/2. -S/p Patient underwent left hemilaminectomy, partial medial facetectomy and microdiscectomy on 05/[address] Rubalcava. -Follow a.m. lab work. -Continue Robaxin, Roxicodone Flexeril, gabapentin, and [place] as needed for pain -PT following, they recommend wheeled walker, home with home health PT -Consult for rehab medicine Hypertension, chronic, stable -Continue Norvasc and lisinopril Hyperlipidemia, chronic -Continue Lipitor DVT prophylaxis-subcu heparin Thank you for this consultation, will continue to follow along. Discussed Condition With: Patient, family and RN
[2018-05-17] MEDS: Senna/Docusate Sodium 8.6/50 MG Tablet PO SCH (20:20)
--- NOTE | 2018-05-17 22:51 | ECG ---
Date Performed: 05/16/2018 Time Performed: 15:34:33 PTAGE: 73 years EKG: Sinus rhythm NONSPECIFIC T-WAVE ABNORMALITY ABNORMAL RHYTHM ECG NO PREVIOUS TRACING DOCTOR: Hugo Campbell Interpretating Date/Time 05/17/2018 22:50:07
[2018-05-18 05:18] LABS: Baso % (Auto) 0.2 % (0.0-2.0); Hematocrit 37.9 % (35.0-46.0); Hemoglobin 12.5 gm/dL (11.6-15.3); Lymph # (Auto) 0.9 th/mm3 (1.0-4.8); Lymph % (Auto) 6.4 % (9.0-44.0); Mean Corpuscular Hemoglobin 29.8 pg (27.0-34.0); Mean Corpuscular Volume 90.2 fL (80.0-100.0); Mean Platelet Volume 9.1 fL (7.0-11.0); Mono # (Auto) 0.8 th/mm3 (0.0-0.9); Neut # (Auto) 11.9 th/mm3 (1.8-7.7); Neut % (Auto) 87.4 % (16.0-70.0); Platelet Count 231 th/mm3 (150-450); Red Cell Distribution Width 13.7 % (11.6-17.2); White Blood Count 13.6 th/mm3 (4.0-11.0)
[2018-05-18 05:49] LABS: Calcium 8.4 mg/dL (8.5-10.1); Carbon Dioxide 31.7 meq/L (21.0-32.0); Potassium 4.4 meq/L (3.5-5.1)
[2018-05-18] MEDS: Levothyroxine 112 MCG Tablet PO SCH (05:51)
[2018-05-18] MEDS: Methocarbamol 500 MG Tablet PO SCH ×3 (05:51→22:22)
[2018-05-18] MEDS: Heparin - SQ 10,000 UNITS/ML Vial SQ SCH ×3 (05:51→22:22)
--- NOTE | 2018-05-18 07:13 | XR ---
EXAM DATE: 05/18/2018 7:03 AM EST AGE/SEX: 73 years / Female INDICATIONS: Short of breath, evaluate asthma CLINICAL DATA: This is the patient's subsequent encounter. Patient reports that signs and symptoms h ave been present for 4 - 6 days and indicates a pain score of 8/10. MEDICAL/SURGICAL HISTORY: Asthma. . back surgery COMPARISON: [facility] [place] 2V AP&LAT, 05/16/2018. . FINDINGS: A single AP view of the chest demonstrates the lungs to be symmetrically aerated without evidence of mass, infiltrate or effusion. The cardiomediastinal contours are unremarkable. Osseous structures a re intact. CONCLUSION: Stable chest without evidence of acute cardiopulmonary process. Electronically signed by: Darryl Loyd MD 05/18/2018 7:12 AM EST
[2018-05-18] MEDS: amLODIPine 5 MG Tablet PO SCH (08:59)
[2018-05-18] MEDS: Polyethylene Glycol 3350 17 GM Packet PO SCH ×2 (08:59→20:03)
[2018-05-18] MEDS: Gabapentin 300 MG Capsule PO SCH ×3 (08:59→18:05)
[2018-05-18] MEDS: Lisinopril 20 MG Tablet PO SCH (08:59)
[2018-05-18] MEDS: Senna/Docusate Sodium 8.6/50 MG Tablet PO SCH ×2 (09:00→20:04)
--- NOTE | 2018-05-18 10:16 | P.PNNS ---
Subjective Interval history: POD#1 73 yo female with suspected combination facet joint and extruded disc material 4 Moshe on the left L1/2. Patient underwent left hemilaminectomy, partial medial facetectomy and microdiscectomy yesterday. Had significant pain relief post-op. Physical Exam Vital signs: Vital Signs 05/17/18 12:51 05/17/18 13:00 05/17/18 13:15 Temperature 97.6 F Pulse Rate 83 85 86 Respiratory Rate 14 18 13 Blood Pressure 118/56 L 122/60 132/66 Pulse Oximetry 94 L 98 98 05/17/18 13:30 05/17/18 13:45 05/17/18 14:00 Temperature 97.5 F L 97.3 F L Pulse Rate 86 87 83 Respiratory Rate 18 14 12 Blood Pressure 139/71 143/75 H 132/61 Pulse Oximetry 95 98 97 05/17/18 14:20 05/17/18 15:49 05/17/18 17:45 Temperature Pulse Rate 101 H Respiratory Rate 12 Blood Pressure 125/60 Pulse Oximetry 93 L 93 L 93 L 05/17/18 19:16 05/17/18 20:00 05/17/18 23:28 Temperature 98.5 F 98.6 F Pulse Rate 106 H 96 H Respiratory Rate 18 18 18 Blood Pressure 112/55 L 94/51 L Pulse Oximetry 97 95 05/18/18 03:16 05/18/18 08:00 Temperature 97.8 F 98.2 F Pulse Rate 79 83 Respiratory Rate 18 12 Blood Pressure 103/54 L 130/73 Pulse Oximetry 95 99 Intake & Output 05/17/18 05/18/18 05/18/18 18:59 06:59 18:59 Intake Total 1999 / 1999 480 / 480 Output Total 775 / 775 1000 / 1000 Balance 1225 / 1225 -520 / -520 Weight 103.7 kg Intake: Oral 500 / 500 480 / 480 Anesthesia Amount 1500 / 1500 Output: Estimated Blood Loss 75 / 75 Urine Amount (Catheter) 700 / 700 1000 / 1000 Indwelling Urethral Catheter 700 / 700 1000 / 1000 Other: Date of Last Bowel Movement 05/16/18 # Bowel Movements 0 - Constitutional moderate distress, morbidly obese Comments: Persistent right buttocks and hip pain. Left sided complaints resolved s/p hemil ;aminectomy. - Routine HEENT Exam Head: Present: normocephalic, atraumatic Eye: Present: EOMI, PERRL, normal accommodation ENT: Present: mucous membranes moist, oropharynx clear - Routine Neck Exam Present: supple, full ROM, normal carotid upstroke, trachea midline - Routine Respiratory Exam Present: CTA bilaterally - Routine Cardiovascular Exam Present: RRR - Routine Abdominal Exam Present: soft, normoactive bowel sounds - Routine Exam Patient deferred: external exam - Routine Extremities Exam Comments: Negative clubbing, cyanosis or edema - Routine Back/Spine/Pelvis Exam Back/Spine: Present: paraspinal tenderness, scoliosis, pain with flexion Comments: resolved left back and L2 distribution pain and intermittent numbness - Routine Neurological Exam Present: alert, oriented X3, CN II-XII intact, normal reflexes, moving all extremities, normal tone, vision grossly intact, hearing grossly intact, normal speech - Detailed Neurological Exam: Coma Scale Eye Opening: Spontaneous Verbal Response: Oriented Motor Response: Obey commands [place] Coma Scale Total: 15 - Routine Psychiatric Exam Present: normal affect, good judgment - Urinary Catheter Management Indwelling Urethral Catheter Cath placed during this visit: yes Urethral indwelling: Yes Reason for continuing: Acute urinary retention Insertion date: 05/13/18 Assessment and Plan - Assessment (1) Low back pain of over 3 months duration Code(s): M54.5 - Low back pain; G89.29 - Other chronic pain Status: Chronic (2) Low back pain of multiple sites of spine with sciatica Code(s): M54.40 - Lumbago with sciatica, unspecified side Status: Chronic - Plan A/P 73 year old female with 3 week history of chronic progressive low back pain with radiation to BLE down to the feet mostly occassionally knees.w/ c/o new onset mid-back pain and T-10 level radicular symptoms during this admission. Neuro: Non-focal Dressing dry Neuro Checks qshift. Pain Control, Bowel regimen L-spine flex/ext views pending doing well cont. flat bedrest x 48 hrs.
--- NOTE | 2018-05-18 11:47 | P.PN ---
Subjective Interval history: Follow-up visit for back pain s/p left hemilaminectomy. Patient is seen and examined resting in bed flat in no acute distress. She denies any fevers, chills , N/V/D, cough or SOB. She complaints of right lower back pain that travels to the left side. Denies any numbness or weakness on the legs. Physical Exam Vital signs: Vital Signs 05/17/18 12:51 05/17/18 13:00 05/17/18 13:15 Temperature 97.6 F Pulse Rate 83 85 86 Respiratory Rate 14 18 13 Blood Pressure 118/56 L 122/60 132/66 Pulse Oximetry 94 L 98 98 05/17/18 13:30 05/17/18 13:45 05/17/18 14:00 Temperature 97.5 F L 97.3 F L Pulse Rate 86 87 83 Respiratory Rate 18 14 12 Blood Pressure 139/71 143/75 H 132/61 Pulse Oximetry 95 98 97 05/17/18 14:20 05/17/18 15:49 05/17/18 17:45 Temperature Pulse Rate 101 H Respiratory Rate 12 Blood Pressure 125/60 Pulse Oximetry 93 L 93 L 93 L 05/17/18 19:16 05/17/18 20:00 05/17/18 23:28 Temperature 98.5 F 98.6 F Pulse Rate 106 H 96 H Respiratory Rate 18 18 18 Blood Pressure 112/55 L 94/51 L Pulse Oximetry 97 95 05/18/18 03:16 05/18/18 08:00 Temperature 97.8 F 98.2 F Pulse Rate 79 83 Respiratory Rate 18 12 Blood Pressure 103/54 L 130/73 Pulse Oximetry 95 99 Intake & Output 05/17/18 05/18/18 05/18/18 18:59 06:59 18:59 Intake Total 1999 / 1999 480 / 480 Output Total 775 / 775 1000 / 1000 950 / 950 Balance 1225 / 1225 -520 / -520 -950 / -950 Weight 103.7 kg Intake: Oral 500 / 500 480 / 480 Anesthesia Amount 1500 / 1500 Output: Estimated Blood Loss 75 / 75 Urine Amount (Catheter) 700 / 700 1000 / 1000 950 / 950 Indwelling Urethral Catheter 700 / 700 1000 / 1000 950 / 950 Other: Date of Last Bowel Movement 05/16/18 05/16/18 # Bowel Movements 0 Narrative: GENERAL: Well-nourished obese female resting in bed comfortably in no acute distress. SKIN: Warm and dry. HEAD: Atraumatic. Normocephalic. EYES: Pupils equal and round. No scleral icterus. No injection or drainage. ENT: No nasal bleeding or discharge. Mucous membranes pink and moist. NECK: Trachea midline. CARDIOVASCULAR: Regular rate and rhythm. RESPIRATORY: No accessory muscle use. Clear to auscultation. Breath sounds equal bilaterally. GASTROINTESTINAL/: Abdomen soft, non-tender, nondistended. + Bowel sounds. Florence catheter draining clear yellow urine. MUSCULOSKELETAL: Extremities without clubbing, cyanosis, or edema. No obvious deformities. Bilateral lower extremity positive movement, sensation, good pulses. NEUROLOGICAL: Awake, alert, oriented x3. No obvious cranial nerve deficits. Motor grossly within normal limits. Normal speech. PSYCHIATRIC: Appropriate mood and affect; insight and judgment normal. - Urinary Catheter Management Indwelling Urethral Catheter Cath placed during this visit: yes Urethral indwelling: Yes Reason for continuing: Acute urinary retention Insertion date: 05/13/18 Results - Labs CBC & Chem 7: 05/18/18 04:15 05/18/18 04:14 Laboratory Results - last 24 hr 05/18/18 05/18/18 04:14 04:15 WBC 13.6 H RBC 4.20 Hgb 12.5 Hct 37.9 MCV 90.2 MCH 29.8 MCHC 33.0 RDW 13.7 Plt Count 231 MPV 9.1 Neut % (Auto) 87.4 H Lymph % (Auto) 6.4 L [place] % (Auto) 6.0 Eos % (Auto) 0.0 Baso % (Auto) 0.2 Neut # (Auto) 11.9 H Lymph # (Auto) 0.9 L [place] # (Auto) 0.8 Eos # (Auto) 0.0 Baso # (Auto) 0.0 WBC Differential . Differential Comment Auto diff final Sodium 137 Potassium 4.4 Chloride 100 Carbon Dioxide 31.7 Anion Gap 5 BUN 9 Creatinine 0.80 Estimated GFR 71 L Random Glucose 147 H Calcium 8.4 L - Imaging Impressions Lumbar Spine X-Ray 05/17/18 00:00 CONCLUSION: Probe directed towards the L1-2 interspace Chest X-Ray 05/18/18 00:00 CONCLUSION: Stable chest without evidence of acute cardiopulmonary process. Assessment and Plan - Plan 73-year-old female with past medical history significant for hypertension, chronic back pain for which she follows up with pain management, bilateral hip surgery and cataracts who originally presented to the ER in [facility] due to progressive worsening lower back pain. [place] [facility] [place] care. [facility] consulted to assist with medical management postoperatively. Lower back pain with sciatica -MRI-T spine of spine with degenerative disc changes with disc bulges at multiple levels with mass-effect on the anterior thecal sac and no definite mass effect on the cord. Broad-based osteophyte, at T12-L1 with mass-effect on the anterior thecal sac. Large mass in the right lobe of the liver with high signals on T2 weighted images. Could be nonspecific but may represent large cavernous hemangioma. -MRI of L-spine with extradural soft tissue mass with rim enhancement located on the left lateral spinal canal at the L2 level. Clumped enhancing nerve root at the lower thecal sac to laminectomy defects characteristic of arachnoiditis. Mild central spinal stenosis, post laminectomy fluid collection characteristic of postsurgical seroma. -Neurosurgery following and suspected combination facet joint and extruded disc material 4 Moshe on the left L1/2. -S/p Patient underwent left hemilaminectomy, partial medial facetectomy and microdiscectomy on 05/[address] Rubalcava. - H&H stable, mild leukocytosis likely 2/2 surgery -Continue Robaxin, Roxicodone Flexeril, gabapentin, and [place] as needed for pain -PT following, they recommend wheeled walker, home with home health PT -Consult for rehab medicine -Flat x48 hrs per neurosurgery. Florence to be DC Hypertension, chronic, stable -Continue Norvasc and lisinopril Hyperlipidemia, chronic -Continue Lipitor DVT prophylaxis-subcu heparin Discussed Condition With: Patient and RN
[2018-05-19] MEDS: Heparin - SQ 10,000 UNITS/ML Vial SQ SCH ×3 (05:47→22:02)
[2018-05-19] MEDS: Levothyroxine 112 MCG Tablet PO SCH (05:47)
[2018-05-19] MEDS: Methocarbamol 500 MG Tablet PO SCH ×3 (05:47→22:01)
[2018-05-19] MEDS: Gabapentin 300 MG Capsule PO SCH ×3 (08:58→17:20)
[2018-05-19] MEDS: Senna/Docusate Sodium 8.6/50 MG Tablet PO SCH ×2 (08:58→22:08)
[2018-05-19] MEDS: amLODIPine 5 MG Tablet PO SCH (08:59)
[2018-05-19] MEDS: Polyethylene Glycol 3350 17 GM Packet PO SCH ×2 (08:59→22:09)
[2018-05-19] MEDS: Lisinopril 20 MG Tablet PO SCH (08:59)
--- NOTE | 2018-05-19 09:34 | P.PNNS ---
Subjective Interval history: POD#2 73 yo female with suspected combination facet joint cyst and extruded disc material mostly foraminal on the left L1/2. Patient underwent left hemilaminectomy, partial medial facetectomy and microdiscectomy 2 days ago with significant pain relief post-op. On exam, patient is in better spirits and denied any of her prior left sided symptomatology. She also denies, H/A's, N/V' s or bowel/bladder dysfunction. Physical Exam Vital signs: Vital Signs 05/18/18 12:00 05/18/18 16:00 05/18/18 20:10 Temperature 98.5 F 99.6 F 98.4 F Pulse Rate 83 73 80 Respiratory Rate 14 12 19 Blood Pressure 116/56 L 113/53 L 109/53 L Pulse Oximetry 100 98 98 05/18/18 23:45 05/19/18 04:10 Temperature 98.3 F 97.9 F Pulse Rate 80 83 Respiratory Rate 18 18 Blood Pressure 112/57 L 128/74 Pulse Oximetry 95 94 L Intake & Output 05/18/18 05/19/18 05/19/18 18:59 06:59 18:59 Intake Total 720 / 720 720 / 720 Output Total 1850 / 1850 650 / 650 Balance -1130 / -1130 70 / 70 Weight 103.8 kg Intake: Oral 720 / 720 720 / 720 Output: Urine 900 / 900 Urine Amount (Catheter) 950 / 950 650 / 650 Indwelling Urethral Catheter 950 / 950 650 / 650 Other: Date of Last Bowel Movement 05/16/18 05/16/18 # Bowel Movements 0 - Constitutional no acute distress, morbidly obese - Routine HEENT Exam Head: Present: normocephalic Eye: Present: EOMI, PERRL, normal accommodation ENT: Present: mucous membranes moist, oropharynx clear - Routine Neck Exam Present: supple, full ROM, normal carotid upstroke, trachea midline - Routine Respiratory Exam Present: CTA bilaterally - Routine Cardiovascular Exam Present: RRR - Routine Abdominal Exam Present: soft, normoactive bowel sounds - Routine Rectal Exam Patient deferred: visual exam - Routine Exam Patient deferred: external exam - Routine Extremities Exam Comments: Negative clubbing, cyanosis or edema. - Routine Skin Exam Present: intact - Routine Neurological Exam Present: alert, oriented X3, CN II-XII intact, normal reflexes, moving all extremities, normal tone, vision grossly intact, hearing grossly intact, normal speech - Detailed Neurological Exam: Coma Scale Eye Opening: Spontaneous Verbal Response: Oriented Motor Response: Obey commands [place] Coma Scale Total: 15 - Routine Psychiatric Exam Present: normal affect - Urinary Catheter Management Indwelling Urethral Catheter Cath placed during this visit: yes Urethral indwelling: Yes Reason for continuing: Other continuation reason Insertion date: 05/13/18 Assessment and Plan - Assessment (1) Low back pain of over 3 months duration Code(s): M54.5 - Low back pain; G89.29 - Other chronic pain Status: Chronic (2) Low back pain of multiple sites of spine with sciatica Code(s): M54.40 - Lumbago with sciatica, unspecified side Status: Chronic - Plan A/P 73 year old female with 3 week history of chronic progressive low back pain with radiation to BLE down to the feet mostly occassionally knees.w/ c/o new onset mid-back pain and T-10 level radicular symptoms during this admission. Neuro: Non-focal Dressing dry Neuro Checks qshift. Pain Control, ( increase Gabapentin) Bowel regimen L-spine flex/ext views pending doing well May mobilize in the AM onn Tuesday
--- NOTE | 2018-05-19 11:24 | P.CONREH ---
History of Present Illness Service: Physical medicine and rehabilitation Consult date: 05/19/18 Reason for Consult: Comprehensive rehabilitation evaluation Primary Care Provider: UNKNOWN Chief Complaint: Chronic progressive low back pain Review of Systems Constitutional: Denies headache(s) Eyes: Reports double vision (At near), Denies loss of vision Ears, Nose, Mouth, and Throat: Denies abnormal hearing, Denies difficulty swallowing, Denies dizziness Cardiovascular: Denies chest pain Respiratory: Denies shortness of breath Gastrointestinal: Denies abdominal pain, Denies constipation Genitourinary: Reports other (Florence catheter in place) Musculoskeletal: Reports back pain (Patient has been medicated per nursing), Denies radiating pain into limb Skin/Breast: Denies itching Neurologic: Denies confusion, Denies memory loss, Denies tingling, Denies weakness Psychiatric: Denies confusion Hematologic/Lymphatic: Denies easy bruising Allergic/Immunologic: Denies throat swelling PMFSH - History History Provided By: Patient, Medical Record - Medical History Medical History: Medical History (Last Reviewed 05/17/18 @ 17:53 by Sally Washington) Cataract HTN (hypertension) History of hysterectomy Varicose vein of leg - Surgical History Surgical History: Surgical History (Last Reviewed 05/17/18 @ 17:53 by Sally Washington) Hip joint replacement status History of lumbar fusion LAP-BAND surgery status Status post complete thyroidectomy Total knee replacement status - Family History Family History: Family History (Last Updated 05/17/18 @ 17:54 by Sally Washington) Father Lung cancer Mother Lung cancer Sister Breast cancer - Tobacco History Second Hand Smoke Exposure: No Tobacco Use In Past 30 Days: No Smoking Status: Former smoker - Alcohol History How Often Do You Have a Drink Containing Alcohol: Never - Substance Use History Substance History: No History of Abuse - Immunization History Tetanus Immunization: Unsure Hx Influenza Vaccine This Season: Yes Medications and Allergies Active Medications: Active Medications Acetaminophen (Tylenol) 650 mg PO Q4H PRN PRN Reason: TEMPERATURE > 101.5 F Hydrocodone Bitart/Acetaminophen (Curran 10/325) 2 tab PO Q4H PRN PRN Reason: PAIN SCALE 6 TO 10 Last Admin: 05/19/18 10:53 Dose: 2 tab Al Hydroxide/Mg Hydroxide (Milk Of Magnesia Liq) 30 ml PO Q12H PRN PRN Reason: Mild Constipation Albuterol (Albuterol Neb (Prn)) 2.5 mg NEB Q4HR NEB PRN PRN Reason: WHEEZING Amlodipine Besylate (Norvasc) 5 mg PO DAILY [facility] Last Admin: 05/19/18 08:59 Dose: 5 mg Atorvastatin Calcium (Lipitor) 10 mg PO DAILY [facility] Last Admin: 05/19/18 08:58 Dose: 10 mg Bisacodyl (Dulcolax Supp) 10 mg RECTAL DAILY PRN PRN Reason: SEVERE CONSITIPATION Cyclobenzaprine HCl (Flexeril) 10 mg PO Q8H PRN PRN Reason: MUSCLE SPASM Last Admin: 05/18/18 01:40 Dose: 10 mg Gabapentin (Neurontin) 600 mg PO TID [facility] Last Admin: 05/19/18 08:58 Dose: 600 mg Heparin Sodium (Porcine) (Heparin Inj) 5,000 units SQ Q8HR [facility] Last Admin: 05/19/18 05:47 Dose: 5,000 units Calcium Gluconate 1 gm/ Sodium (Chloride) 110 mls @ 110 mls/hr IV.SIG UNSCH PRN PRN Reason: SEE LABEL COMMENTS Cefazolin Sodium/Dextrose (Ancef 2 Gm Premix Inj) 2 gm in 50 mls @ 100 mls/hr IV.SIG [employer]ST PRN PRN Reason: Pre-op Stop: 05/20/18 14:49 Lactulose (Lactulose Liq) 30 ml PO DAILY PRN PRN Reason: SEVERE CONSITIPATION Levothyroxine Sodium (Synthroid) 25 mcg PO DAILY@0600 [facility] Last Admin: 05/19/18 05:47 Dose: 25 mcg Levothyroxine Sodium (Synthroid) 112 mcg PO DAILY@0600 [facility] Last Admin: 05/19/18 05:47 Dose: 112 mcg Lisinopril (Prinivil) 20 mg PO DAILY [facility] Last Admin: 05/19/18 08:59 Dose: 20 mg Menthol ([place]) 1 lozenge BUCCAL UNSCH PRN PRN Reason: SORE THROAT Methocarbamol (Robaxin) 750 mg PO Q8HR [facility] Last Admin: 05/19/18 05:47 Dose: 750 mg Morphine Sulfate (Morphine Inj) 2 mg IV.PUSH Q2H PRN PRN Reason: Pain Scale 1 to 5 Ondansetron HCl (Zofran Inj) 4 mg IV.PUSH Q6H PRN PRN Reason: NAUSEA OR VOMITING Oxycodone HCl (Roxicodone) 10 mg PO Q4H PRN PRN Reason: FOR BREAKTHROUGH PAIN Last Admin: 05/19/18 08:59 Dose: 10 mg Polyethylene Glycol (Miralax) 17 gm PO BID [facility] Last Admin: 05/19/18 08:59 Dose: 17 gm Senna/Docusate Sodium (Aura-Colace) 1 tab PO BID [facility] Last Admin: 05/19/18 08:58 Dose: 1 tab Sennosides (Senokot) 17.2 mg PO Q12H PRN PRN Reason: Moderate Constipation Zolpidem Tartrate (Ambien) 5 mg PO HS PRN PRN Reason: INSOMNIA Allergies Allergy/AdvReac Type Severity Reaction Status Date / Time tramadol Allergy Severe Anaphylaxis Verified 05/13/18 23:50 moxifloxacin [From Avelox] Allergy Mild Itching, Verified 05/13/18 23:52 Generalized Home Medications Medication Instructions Recorded Confirmed Type amlodipine-benazepril 1 cap PO DAILY 05/13/18 05/13/18 History atorvastatin 10 mg PO DAILY 05/14/18 05/14/18 History carisoprodol 350 mg PO 05/14/18 05/14/18 History fentanyl 75 mcg/hr TRANSDERMAL 05/14/18 History gabapentin 300 mg PO TID 05/14/18 05/14/18 History levothyroxine [Synthroid] 137 mcg PO DAILY 05/14/18 05/14/18 History Exam - Physical Examination Vital Signs / I&O: Vital Signs 05/18/18 12:00 05/18/18 16:00 05/18/18 20:10 Temperature 98.5 F 99.6 F 98.4 F Pulse Rate 83 73 80 Respiratory Rate 14 19 Blood Pressure 116/56 L 113/53 L 109/53 L Pulse Oximetry 100 98 98 05/18/18 23:45 05/19/18 04:10 05/19/18 08:00 Temperature 98.3 F 97.9 F 97.7 F Pulse Rate 80 83 71 Respiratory Rate 18 18 18 Blood Pressure 112/57 L 128/74 115/59 L Pulse Oximetry 95 94 L 96 Intake & Output 05/18/18 05/19/18 05/19/18 18:59 06:59 18:59 Intake Total 720 / 720 720 / 720 Output Total 1850 / 1850 650 / 650 Balance -1130 / -1130 70 / 70 Weight 103.8 kg Intake: Oral 720 / 720 720 / 720 Output: Urine 900 / 900 Urine Amount (Catheter) 950 / 950 650 / 650 Indwelling Urethral Catheter 950 / 950 650 / 650 Other: Date of Last Bowel Movement 05/16/18 05/16/18 05/16/18 # Bowel Movements 0 Intake & Output 05/17/18 05/18/18 05/19/18 05/20/18 06:59 06:59 06:59 06:59 Intake Total 0 / 0 2480 / 2480 1440 / 1440 Output Total 1250 / 1250 1775 / 1775 2500 / 2500 Balance -1250 / -1250 705 / 705 -1060 / -1060 Weight 103.7 kg 103.7 kg 103.8 kg General: No acute distress, Other (Patient awake and alert; answers questions appropriately and follows commands well; resting comfortably in bed) Respiratory: Lungs CTA, Non-labored respirations, BS equal Gastrointestinal: Positive bowel sounds, Non-distended, Non-tender Date of Last Bowel Movement: 05/16/18 Cardiovascular: Normal rate, No edema, Regular rhythm Skin: No rash Musculoskeletal: Swelling (Trace at the ankles in both lower extremities) Psychiatric: Cooperative, Appropriate mood & affect - Neurologic Orientation: oriented to: Self, Place, Time, Situation Neurologic: Cranial nerves (Grossly intact 2 through 12) Motor: Right Upper Extremity (5/5), Left Upper Extremity (5/5), Right Lower Extremity (Testing limited due to pain but distal strength is 5/5), Left Lower Extremity (Testing limited due to pain but distal strength is 5/5) Sensory: Intact to light touch in both upper and lower extremities Babinski: Negative Clonus: Negative Results - Labs CBC & Chem 7: 05/18/18 04:15 05/18/18 04:14 Assessment and Plan - Plan Assessment: 1. Status post left hemilaminectomy, partial medial facetectomy and microdiscectomy for left L1-L2 facet cyst and herniated disc 05/17/18 2. Impaired mobility and ADLs due to above Recommendations: 1. Physical therapy is treating while on bedrest to maintain strength. Patient is permitted to be mobilized 05/21/18 per neurosurgery notes. 2. Occupational therapy for ADLs 3. Patient is receiving SQ heparin and SCDs are in place for VTE prophylaxis 4. Case management is beginning discharge planning. Patient may need short inpatient rehab prior to return home versus home health. She lives in [place] with her . Prior to admission she was using either a cane or a walker for household gait. 5. Reposition per nursing while on bedrest to protect skin and monitor carefully for breakdown 6. Will follow while hospitalized and at discharge as appropriate Thank you for this consult
--- NOTE | 2018-05-19 13:37 | P.PN ---
Subjective Interval history: Follow-up visit for back pain s/p left hemilaminectomy. Patient is seen and examined resting in bed with complaints of pain. Today she complains of lower abdominal pain along with anterior thigh pain. She describes her pain as aching and rates it 9/10. She denies any fevers, chills, nausea, vomiting, diarrhea. Physical Exam Vital signs: Vital Signs 05/18/18 16:00 05/18/18 20:10 05/18/18 23:45 Temperature 99.6 F 98.4 F 98.3 F Pulse Rate 73 80 80 Respiratory Rate 05 24 18 Blood Pressure 113/53 L 109/53 L 112/57 L Pulse Oximetry 98 98 95 05/19/18 04:10 05/19/18 08:00 05/19/18 12:00 Temperature 97.9 F 97.7 F 97.5 F L Pulse Rate 83 71 83 Respiratory Rate 18 Blood Pressure 128/74 115/59 L 116/55 L Pulse Oximetry 94 L 96 93 L Intake & Output 05/18/18 05/19/18 05/19/18 18:59 06:59 18:59 Intake Total 720 / 720 720 / 720 1000 / 1000 Output Total 1850 / 1850 650 / 650 Balance -1130 / -1130 70 / 70 1000 / 1000 Weight 103.8 kg Intake: IV 1000 / 1000 Oral 720 / 720 720 / 720 Output: Urine 900 / 900 Urine Amount (Catheter) 950 / 950 650 / 650 Indwelling Urethral Catheter 950 / 950 650 / 650 Other: Date of Last Bowel Movement 05/16/18 05/16/18 05/16/18 # Bowel Movements 0 Narrative: GENERAL: Well-nourished obese female resting in bed comfortably in no acute distress. SKIN: Warm and dry. HEAD: Atraumatic. Normocephalic. EYES: Pupils equal and round. No scleral icterus. No injection or drainage. ENT: No nasal bleeding or discharge. Mucous membranes pink and moist. NECK: Trachea midline. CARDIOVASCULAR: Regular rate and rhythm. RESPIRATORY: No accessory muscle use. Clear to auscultation. Breath sounds equal bilaterally. GASTROINTESTINAL/: Abdomen soft, non-tender, nondistended. + Bowel sounds. [place] catheter draining clear yellow urine. MUSCULOSKELETAL: Extremities without clubbing, cyanosis, or edema. No obvious deformities. Bilateral lower extremity positive movement, sensation, good pulses. NEUROLOGICAL: Awake, alert, oriented x3. No obvious cranial nerve deficits. Motor grossly within normal limits. Normal speech. PSYCHIATRIC: Appropriate mood and affect; insight and judgment normal. - Urinary Catheter Management Indwelling Urethral Catheter Cath placed during this visit: yes Urethral indwelling: Yes Reason for continuing: Other continuation reason Insertion date: 05/13/18 Results - Labs CBC & Chem 7: 05/18/18 04:15 05/18/18 04:14 Assessment and Plan - Plan 73-year-old female with past medical history significant for hypertension, chronic back pain for which she follows up with pain management, bilateral hip surgery and cataracts who originally presented to the ER in [facility] due to progressive worsening lower back pain. Patient transferred to [facility] under neurovascular surgery care. [facility] consulted to assist with medical management postoperatively. Lower back pain with sciatica -MRI-T spine of spine with degenerative disc changes with disc bulges at multiple levels with mass-effect on the anterior thecal sac and no definite mass effect on the cord. Broad-based osteophyte, at T12-L1 with mass-effect on the anterior thecal sac. Large mass in the right lobe of the liver with high signals on T2 weighted images. Could be nonspecific but may represent large cavernous hemangioma. -MRI of L-spine with extradural soft tissue mass with rim enhancement located on the left lateral spinal canal at the L2 level. Clumped enhancing nerve root at the lower thecal sac to laminectomy defects characteristic of arachnoiditis. Mild central spinal stenosis, post laminectomy fluid collection characteristic of postsurgical seroma. -Neurosurgery following and suspected combination facet joint and extruded disc material 4 Moshe on the left L1/2. -S/p Patient underwent left hemilaminectomy, partial medial facetectomy and microdiscectomy on 05/[address] Rubalcava. - H&H stable, mild leukocytosis likely 2/2 surgery -Continue Robaxin, Roxicodone Flexeril, gabapentin, and [place] as needed for pain -PT following, they recommend wheeled walker, home with home health PT -Consult for rehab medicine -Bedrest, mobilize in the a.m. on Tuesday. Hypertension, chronic, stable -Continue Norvasc and lisinopril - BP and HR stable. Hyperlipidemia, chronic -Continue Lipitor New onset of DM -Hemoglobin A1C 6.7, consult visual educator, start low dose Metformin -BS so far <150, hold of on insulin sliding scale. DVT prophylaxis-subcu heparin Discussed Condition With: Patient and RN
[2018-05-19 16:54] LABS: Hemoglobin A1c 6.7 % (4.3-6.0)
[2018-05-20] MEDS: Heparin - SQ 10,000 UNITS/ML Vial SQ SCH ×3 (05:31→21:16)
[2018-05-20] MEDS: Methocarbamol 500 MG Tablet PO SCH ×3 (05:32→21:15)
[2018-05-20] MEDS: Levothyroxine 112 MCG Tablet PO SCH (05:32)
[2018-05-20] MEDS: amLODIPine 5 MG Tablet PO SCH (09:41)
[2018-05-20] MEDS: Lisinopril 20 MG Tablet PO SCH (09:41)
[2018-05-20] MEDS: Gabapentin 300 MG Capsule PO SCH ×3 (09:42→17:12)
[2018-05-20] MEDS: Senna/Docusate Sodium 8.6/50 MG Tablet PO SCH ×2 (09:42→21:16)
[2018-05-20] MEDS: Polyethylene Glycol 3350 17 GM Packet PO SCH ×2 (09:43→21:16)
--- NOTE | 2018-05-20 11:52 | P.PNNS ---
Physical Exam Vital signs: Vital Signs 05/19/18 12:00 05/19/18 16:00 05/19/18 20:30 Temperature 97.5 F L 98.2 F 98.6 F Pulse Rate 83 78 77 Respiratory Rate 18 18 18 Blood Pressure 116/55 L 108/59 L 111/72 Pulse Oximetry 93 L 92 L 99 05/20/18 00:00 05/20/18 08:00 05/20/18 10:51 Temperature 98.1 F 97.7 F Pulse Rate 86 68 Respiratory Rate 18 17 Blood Pressure 121/58 L 112/54 L Pulse Oximetry 93 L 95 96 Intake & Output 05/19/18 05/20/18 05/20/18 18:59 06:59 18:59 Intake Total 1000 / 1000 720 / 720 Output Total 2500 / 2500 Balance 1000 / 1000 -1780 / -1780 Weight 103.8 kg Intake: IV 1000 / 1000 Oral 720 / 720 Output: Urine 1650 / 1650 Urine Amount (Catheter) 850 / 850 Indwelling Urethral Catheter 850 / 850 Other: Date of Last Bowel Movement 05/16/18 05/16/18 05/16/18 # Bowel Movements 0 - Constitutional mild distress Comments: Low back pain - Routine HEENT Exam Head: Present: normocephalic, atraumatic Eye: Present: EOMI, PERRL ENT: Present: mucous membranes moist, oropharynx clear, TM's clear bilaterally - Routine Neck Exam Present: supple, full ROM, trachea midline - Routine Respiratory Exam Present: CTA bilaterally - Routine Cardiovascular Exam Present: RRR - Routine Abdominal Exam Present: soft, normoactive bowel sounds - Routine Extremities Exam Comments: Negative clubbing, cyanosis or edema - Routine Back/Spine/Pelvis Exam Comments: Dressing clean dry, intact - Routine Skin Exam Present: intact - Routine Neurological Exam Present: alert, oriented X3, CN II-XII intact, normal reflexes, moving all extremities, normal tone, vision grossly intact, hearing grossly intact, normal speech - Detailed Neurological Exam: Coma Scale Eye Opening: Spontaneous Verbal Response: Oriented Motor Response: Obey commands [place] Coma Scale Total: 15 - Routine Psychiatric Exam Present: normal affect, good judgment - Urinary Catheter Management Indwelling Urethral Catheter Cath placed during this visit: yes Urethral indwelling: Yes Reason for continuing: Other continuation reason Insertion date: 05/13/18 Assessment and Plan - Assessment (1) Low back pain of over 3 months duration Code(s): M54.5 - Low back pain; G89.29 - Other chronic pain Status: Chronic (2) Low back pain of multiple sites of spine with sciatica Code(s): M54.40 - Lumbago with sciatica, unspecified side Status: Chronic - Plan A/P 73 year old female with 3 week history of chronic progressive low back pain with radiation to BLE down to the feet mostly occassionally knees.w/ c/o new onset mid-back pain and T-10 level radicular symptoms during this admission. Neuro: Non-focal Dressing dry Neuro Checks qshift. Pain Control, ( increase Gabapentin) Bowel regimen L-spine flex/ext views pending doing well May mobilize in the AM on Tuesday
--- NOTE | 2018-05-20 16:02 | P.PNIM ---
Subjective Interval history: Patient is seen lying in bed. She reports that her pain is well controlled this time. No chest pain or shortness of breath. No nausea vomiting or diarrhea. Physical Exam Vital signs: Last Vital Signs Temp 98.2 F 05/20/18 11:58 Pulse 87 05/20/18 11:58 Resp 16 05/20/18 11:58 BP 160/73 H 05/20/18 11:58 Pulse Ox 96 05/20/18 11:58 Intake & Output 05/18/18 05/19/18 05/20/18 05/21/18 06:59 06:59 06:59 06:59 Intake Total 2480 / 2480 1440 / 1440 1720 / 1720 Output Total 1775 / 1775 2500 / 2500 2500 / 2500 Balance 705 / 705 -1060 / -1060 -780 / -780 Weight 103.7 kg 103.8 kg 103.8 kg Narrative: GENERAL: Well-nourished obese female resting in bed comfortably in no acute distress. SKIN: Warm and dry. HEAD: Atraumatic. Normocephalic. CARDIOVASCULAR: Regular rate and rhythm. RESPIRATORY: No accessory muscle use. Clear to auscultation. Breath sounds equal bilaterally. GASTROINTESTINAL/: Abdomen soft, non-tender, nondistended. + Bowel sounds. MUSCULOSKELETAL: Extremities without clubbing, cyanosis, or edema. No obvious deformities. Bilateral lower extremity positive movement, sensation, good pulses. NEUROLOGICAL: Awake, alert, oriented x3. No obvious cranial nerve deficits. Motor grossly within normal limits. Normal speech. PSYCHIATRIC: Appropriate mood and affect; insight and judgment normal. Urinary Catheter Management Indwelling Urethral Catheter: Cath placed during this visit: yes Urethral indwelling: Yes Reason for continuing: Other continuation reason Insertion date: 05/13/18 Results Labs CBC & Chem 7: 05/18/18 04:15 05/18/18 04:14 Assessment and Plan Plan 73-year-old female with past medical history significant for hypertension, chronic back pain for which she follows up with pain management, bilateral hip surgery and cataracts who originally presented to the ER in [facility] due to progressive worsening lower back pain. Patient transferred to [facility] [place]vascular surgery care. [facility] consulted to assist with medical management postoperatively. Lower back pain with sciatica -MRI-T spine of spine with degenerative disc changes with disc bulges at multiple levels with mass-effect on the anterior thecal sac and no definite mass effect on the cord. Broad-based osteophyte, at T12-L1 with mass-effect on the anterior thecal sac. Large mass in the right lobe of the liver with high signals on T2 weighted images. Could be nonspecific but may represent large cavernous hemangioma. -MRI of L-spine with extradural soft tissue mass with rim enhancement located on the left lateral spinal canal at the L2 level. Clumped enhancing nerve root at the lower thecal sac to laminectomy defects characteristic of arachnoiditis. Mild central spinal stenosis, post laminectomy fluid collection characteristic of postsurgical seroma. -Neurosurgery following and suspected combination facet joint and extruded disc material 4 Moshe on the left L1/2. -S/p Patient underwent left hemilaminectomy, partial medial facetectomy and microdiscectomy on 05/[address] Rubalcava. - H&H stable, mild leukocytosis likely 2/2 surgery -recheck -Continue Robaxin, Roxicodone Flexeril, gabapentin, and [place] as needed for pain -PT following, they recommend wheeled walker, home with home health PT -Consult for rehab medicine -Bedrest, mobilize in the a.m. on Tuesday. Hypertension, chronic, stable -Continue Norvasc and lisinopril Hyperlipidemia, chronic -Continue Lipitor New onset of DM -Hemoglobin A1C 6.7, consult inclusion paraeducator, start low dose Metformin -BS so far <150, hold of on insulin sliding scale. DVT prophylaxis-subcu heparin Discussed Condition With: Patient and RN Progress Note: Quality VTE Deep Vein Thrombosis/Pulmonary Embolism Present on Admission: No
[2018-05-21] MEDS: Heparin - SQ 10,000 UNITS/ML Vial SQ SCH ×3 (05:53→21:24)
[2018-05-21] MEDS: Levothyroxine 112 MCG Tablet PO SCH (05:54)
[2018-05-21] MEDS: Methocarbamol 500 MG Tablet PO SCH ×3 (05:55→21:25)
[2018-05-21 06:38] LABS: Baso # (Auto) 0.1 th/mm3 (0.0-0.2); Baso % (Auto) 1.1 % (0.0-2.0); Eos # (Auto) 0.3 th/mm3 (0.0-0.4); Eos % (Auto) 3.5 % (0.0-4.0); Hematocrit 36.4 % (35.0-46.0); Hemoglobin 12.4 gm/dL (11.6-15.3); Lymph # (Auto) 1.8 th/mm3 (1.0-4.8); Mean Corpuscular HGB Conc 34.1 % (32.0-36.0); Mean Corpuscular Hemoglobin 30.3 pg (27.0-34.0); Mean Corpuscular Volume 88.6 fL (80.0-100.0); Mono # (Auto) 0.7 th/mm3 (0.0-0.9); Mono % (Auto) 8.3 % (0.0-8.0); Neut # (Auto) 5.7 th/mm3 (1.8-7.7); Neut % (Auto) 66.1 % (16.0-70.0); Platelet Count 216 th/mm3 (150-450); Red Blood Count 4.11 mil/mm3 (4.00-5.30); Red Cell Distribution Width 13.9 % (11.6-17.2); White Blood Count 8.6 th/mm3 (4.0-11.0)
[2018-05-21] MEDS: amLODIPine 5 MG Tablet PO SCH (08:27)
[2018-05-21] MEDS: Gabapentin 300 MG Capsule PO SCH ×3 (08:28→17:35)
[2018-05-21] MEDS: Lisinopril 20 MG Tablet PO SCH (08:28)
[2018-05-21] MEDS: Senna/Docusate Sodium 8.6/50 MG Tablet PO SCH ×2 (08:28→20:56)
[2018-05-21] MEDS: Polyethylene Glycol 3350 17 GM Packet PO SCH ×2 (08:29→20:58)
--- NOTE | 2018-05-21 13:22 | P.PNNS ---
Subjective Interval history: The patient has remained stable overnight. She complains of an episode of severe back pain with radiation down both lower extremities associated with dysesthesias. The patient denies any headaches and feels that her incisional back pain is improving. She also states she had a bowel movement. Physical Exam Vital signs: Vital Signs 05/20/18 16:00 05/20/18 19:29 05/20/18 23:22 Temperature 98.3 F 98.1 F 98.1 F Pulse Rate 84 76 74 Respiratory Rate 18 18 18 Blood Pressure 161/70 H 129/66 131/63 Pulse Oximetry 96 99 95 05/21/18 08:00 05/21/18 12:00 Temperature 98.5 F 98.0 F Pulse Rate 81 80 Respiratory Rate 16 17 Blood Pressure 167/83 H 174/74 H Pulse Oximetry 98 97 Intake & Output 05/20/18 05/21/18 05/21/18 18:59 06:59 18:59 Intake Total 800 / 800 840 / 840 Output Total 2375 / 2375 Balance 800 / 800 -1535 / -1535 Weight 108.8 kg Intake: Oral 800 / 800 840 / 840 Output: Urine Amount (Catheter) 2375 / 2375 Indwelling Urethral Catheter 2375 / 2375 Other: Date of Last Bowel Movement 05/16/18 05/16/18 05/21/18 # Bowel Movements 0 - Routine Neurological Exam The patient is lying in bed exam to the room. She is in no acute distress. Mental status testing finds her to be awake and alert. She is oriented by 3. Cognitive functions grossly intact. His speech is fluent. Cranial nerve testing 2 through 12 is grossly intact. There are no focal motor nor sensory deficits. She is continent of bowel and a [place] catheter remains in place. The dressing remains dry and in place. - Urinary Catheter Management Indwelling Urethral Catheter Cath placed during this visit: yes Urethral indwelling: Yes Reason for continuing: Other continuation reason Insertion date: 05/13/18 Assessment and Plan - Assessment (1) Low back pain of over 3 months duration Code(s): M54.5 - Low back pain; G89.29 - Other chronic pain Status: Chronic (2) Low back pain of multiple sites of spine with sciatica Code(s): M54.40 - Lumbago with sciatica, unspecified side Status: Chronic - Plan A/P 73 year old female with 3 week history of chronic progressive low back pain with radiation to BLE down to the feet mostly occassionally knees.w/ c/o new onset mid-back pain and T-10 level radicular symptoms during this admission. Neuro: Non-focal Dressing dry Neuro Checks qshift. Pain Control, ( increase Gabapentin) Bowel regimen L-spine flex/ext views pending doing well May mobilize in the AM n Tuesday05/21/2018 The patient continues to do well and is stable. As above, I would continue the present management. The patient is to be mobilized today. She probably will require a course of inpatient rehabilitation , and require evaluation for transfer. Neurosurgery will follow.
--- NOTE | 2018-05-21 16:23 | P.PNIM ---
Subjective Interval history: Patient seen lying in bed. She is looking forward to working with physical therapy and getting up today. She reports that she did have a back spasm in the middle the night that was eventually relieved with [place] and muscle relaxant. Has not had further spasm. No loss of feeling or strength in bilateral lower extremities. No headache or dizziness. No chest pain or shortness of breath. Physical Exam Vital signs: Last Vital Signs Temp 98.0 F 05/21/18 12:00 Pulse 80 05/21/18 12:00 Resp 17 05/21/18 12:00 BP 174/74 H 05/21/18 12:00 Pulse Ox 97 05/21/18 12:00 Intake & Output 05/19/18 05/20/18 05/21/18 05/22/18 06:59 06:59 06:59 06:59 Intake Total 1440 / 1440 1720 / 1720 1640 / 1640 Output Total 2500 / 2500 2500 / 2500 2375 / 2375 Balance -1060 / -1060 -780 / -780 -735 / -735 Weight 103.8 kg 103.8 kg 108.8 kg Narrative: GENERAL: Well-nourished obese female resting in bed comfortably in no acute distress. SKIN: Warm and dry. HEAD: Atraumatic. Normocephalic. CARDIOVASCULAR: Regular rate and rhythm. RESPIRATORY: No accessory muscle use. Clear to auscultation. Breath sounds equal bilaterally. GASTROINTESTINAL/: Abdomen soft, non-tender, nondistended. + Bowel sounds. MUSCULOSKELETAL: Extremities without clubbing, cyanosis, or edema. No obvious deformities. Bilateral lower extremity positive movement, sensation, good pulses. NEUROLOGICAL: Awake, alert, oriented x3. No obvious cranial nerve deficits. Motor grossly within normal limits. Normal speech. PSYCHIATRIC: Appropriate mood and affect; insight and judgment normal. Urinary Catheter Management Indwelling Urethral Catheter: Cath placed during this visit: yes Urethral indwelling: Yes Reason for continuing: Other continuation reason Insertion date: 05/13/18 Results Labs CBC & Chem 7: 05/21/18 05:44 05/18/18 04:14 Assessment and Plan Plan 73-year-old female with past medical history significant for hypertension, chronic back pain for which she follows up with pain management, bilateral hip surgery and cataracts who originally presented to the ER in [facility] due to progressive worsening lower back pain. Patient transferred to [facility] under neurovascular surgery care. [facility] consulted to assist with medical management postoperatively. Lower back pain with sciatica -Neurosurgery following and suspected combination facet joint and extruded disc material 4 Moshe on the left L1/2. -S/p Patient underwent left hemilaminectomy, partial medial facetectomy and microdiscectomy on 05/[address] Rubalcava. - H&H stable, mild leukocytosis likely 2/2 surgery - WNL on recheck -Continue Robaxin, Roxicodone Flexeril, gabapentin, and [place] as needed for pain -PT following, they recommend wheeled walker, home with home health PT -Consult for rehab medicine -Bedrest, mobilize in the a.m. on Tuesday. -Currently has [place]; DC as soon as patient is able to use bedside commode or bedpan. Hypertension, chronic, stable -Continue Norvasc and lisinopril Hyperlipidemia, chronic -Continue Lipitor New onset of DM -Hemoglobin A1C 6.7, consult tobacco educator, start low dose Metformin -BS so far <150, hold off on insulin sliding scale. DVT prophylaxis-subcu heparin Discussed Condition With: Patient and RN Progress Note: Quality VTE Deep Vein Thrombosis/Pulmonary Embolism Present on Admission: No
[2018-05-22] MEDS: Heparin - SQ 10,000 UNITS/ML Vial SQ SCH ×3 (05:00→21:04)
[2018-05-22] MEDS: Levothyroxine 112 MCG Tablet PO SCH (05:01)
[2018-05-22] MEDS: Methocarbamol 500 MG Tablet PO SCH ×3 (05:01→21:04)
[2018-05-22] MEDS: Lisinopril 20 MG Tablet PO SCH (09:12)
[2018-05-22] MEDS: Senna/Docusate Sodium 8.6/50 MG Tablet PO SCH ×2 (09:12→21:04)
[2018-05-22] MEDS: Gabapentin 300 MG Capsule PO SCH ×3 (09:13→17:02)
[2018-05-22] MEDS: amLODIPine 5 MG Tablet PO SCH (09:13)
[2018-05-22] MEDS: Polyethylene Glycol 3350 17 GM Packet PO SCH ×2 (09:13→21:06)
--- NOTE | 2018-05-22 15:59 | P.PNNS ---
Subjective Interval history: POD#4 05/21 She reports that she did have a back spasm in the middle the night that was eventually relieved with [place] and muscle relaxant. Has not had further spasm. No loss of feeling or strength in bilateral lower extremities. No headache or dizziness. No chest pain or shortness of breath. 05/22 No overnight events Physical Exam Vital signs: Vital Signs 05/21/18 16:00 05/21/18 19:48 05/21/18 23:55 Temperature 98.5 F 99.1 F 98.0 F Pulse Rate 90 91 H 89 Respiratory Rate 18 Blood Pressure 138/75 113/55 L 132/72 Pulse Oximetry 96 96 94 L 05/22/18 07:29 05/22/18 11:27 05/22/18 15:06 Temperature 97.9 F 98.1 F 97.9 F Pulse Rate 75 75 85 Respiratory Rate Blood Pressure 121/69 137/66 123/69 Pulse Oximetry 93 L 93 L 92 L Intake & Output 05/21/18 05/22/18 05/22/18 18:59 06:59 18:59 Intake Total 1300 / 1300 600 / 600 Output Total 1900 / 1900 1300 / 1300 350 / 350 Balance -600 / -600 -700 / -700 -350 / -350 Weight 105.6 kg Intake: Oral 1300 / 1300 600 / 600 Output: Urine Amount (Catheter) 1900 / 1900 1300 / 1300 350 / 350 Indwelling Urethral Catheter 1900 / 1900 1300 / 1300 350 / 350 Other: Date of Last Bowel Movement 05/21/18 05/21/18 05/22/18 # Bowel Movements 0 1 - Constitutional mild distress, morbidly obese, cooperative Comments: c/o aggravate LBP after PT this m,orning. - Routine HEENT Exam Head: Present: normocephalic, atraumatic Eye: Present: EOMI, PERRL ENT: Present: mucous membranes moist, oropharynx clear, TM's clear bilaterally - Routine Neck Exam Present: supple, full ROM, trachea midline - Routine Respiratory Exam Present: CTA bilaterally - Routine Cardiovascular Exam Present: RRR - Routine Abdominal Exam Present: soft, normoactive bowel sounds - Routine Extremities Exam Comments: Negative clubbing, cyanosis or edema - Routine Back/Spine/Pelvis Exam Comments: [place] clean, dry. [place] intact - Routine Skin Exam Present: intact - Routine Neurological Exam Present: alert, oriented X3, CN II-XII intact, normal reflexes, moving all extremities, normal tone, vision grossly intact, hearing grossly intact, normal speech - Detailed Neurological Exam: Coma Scale Eye Opening: Spontaneous Verbal Response: Oriented Motor Response: Obey commands [place] Coma Scale Total: 15 - Routine Psychiatric Exam Present: normal affect, cooperative - Urinary Catheter Management Indwelling Urethral Catheter Cath placed during this visit: yes, but has since been removed by the nurse Urethral indwelling: No Insertion date: 05/13/18 Removal date: 05/22/18 Removal time: 09:35 Assessment and Plan - Assessment (1) Low back pain of over 3 months duration Code(s): M54.5 - Low back pain; G89.29 - Other chronic pain Status: Chronic (2) Low back pain of multiple sites of spine with sciatica Code(s): M54.40 - Lumbago with sciatica, unspecified side Status: Chronic - Plan A/P 73 year old female with 3 week history of chronic progressive low back pain with radiation to BLE down to the feet mostly occassionally knees.w/ c/o new onset mid-back pain and T-10 level radicular symptoms during this admission. Neuro: Non-focal [place] clean, dry. [place] intact doing well Has been ambulating well, with PT and walker Ready for discharge to Rehab Will transfer to Hospitalist service
--- NOTE | 2018-05-22 16:37 | P.PNIM ---
Subjective Interval history: Patient is seen lying in bed just after working with physical therapy. Therapy went well and pain is controlled however she says she is getting tired very easily. [place] catheter was discontinued and she has been voiding without difficulty. No chest pain or shortness of breath. No further back spasm as of this morning. No fever or chills. Physical Exam Vital signs: Last Vital Signs Temp 97.9 F 05/22/18 15:06 Pulse 85 05/22/18 15:06 Resp 17 05/22/18 15:06 BP 123/69 05/22/18 15:06 Pulse Ox 92 L 05/22/18 15:06 Intake & Output 05/20/18 05/21/18 05/22/18 05/23/18 06:59 06:59 06:59 06:59 Intake Total 1720 / 1720 1640 / 1640 1900 / 1900 Output Total 2500 / 2500 2375 / 2375 3200 / 3200 350 / 350 Balance -780 / -780 -735 / -735 -1300 / -1300 -350 / -350 Weight 103.8 kg 108.8 kg 105.6 kg Narrative: GENERAL: Well-nourished obese female resting in bed comfortably in no acute distress. SKIN: Warm and dry. HEAD: Atraumatic. Normocephalic. CARDIOVASCULAR: Regular rate and rhythm. RESPIRATORY: No accessory muscle use. Clear to auscultation. Breath sounds equal bilaterally. GASTROINTESTINAL/: Abdomen soft, non-tender, nondistended. + Bowel sounds. MUSCULOSKELETAL: Extremities without clubbing, cyanosis, or edema. No obvious deformities. Bilateral lower extremity positive movement, sensation, good pulses. NEUROLOGICAL: Awake, alert, oriented x3. No obvious cranial nerve deficits. Motor grossly within normal limits. Normal speech. PSYCHIATRIC: Appropriate mood and affect; insight and judgment normal. Urinary Catheter Management Indwelling Urethral Catheter: Cath placed during this visit: yes, but has since been removed by the nurse Urethral indwelling: No Insertion date: 05/13/18 Removal date: 05/22/18 Removal time: 09:35 Results Labs CBC & Chem 7: 05/21/18 05:44 05/18/18 04:14 Assessment and Plan (1) Low back pain of over 3 months duration: Code(s): M54.5 - Low back pain; G89.29 - Other chronic pain Status: Chronic (2) Low back pain of multiple sites of spine with sciatica: Code(s): M54.40 - Lumbago with sciatica, unspecified side Status: Chronic Plan 73-year-old female with past medical history significant for hypertension, chronic back pain for which she follows up with pain management, bilateral hip surgery and cataracts who originally presented to the ER in [facility] due to progressive worsening lower back pain. Patient transferred to [facility] under neurovascular surgery care. [facility] consulted to assist with medical management postoperatively. Lower back pain with sciatica -Neurosurgery following and suspected combination facet joint and extruded disc material 4 Moshe on the left L1/2. -S/p Patient underwent left hemilaminectomy, partial medial facetectomy and microdiscectomy on 05/[address] Rubalcava. - H&H stable, mild leukocytosis likely 2/2 surgery - WNL on recheck -Continue Robaxin, Roxicodone Flexeril, gabapentin, and [place] as needed for pain -PT following, they recommend wheeled walker, home with home health PT -Consult for rehab medicine -Naman MCWILLIAMS'david yesterday 05/21; urinating normally. Hypertension, chronic, stable -Continue Norvasc and lisinopril Hyperlipidemia, chronic -Continue Lipitor New onset of DM -Hemoglobin A1C 6.7, consult prosthodontist/educator, start low dose Metformin -BS so far <150, hold off on insulin sliding scale. DVT prophylaxis-subcu heparin Discussed Condition With: Patient and RN Progress Note: Quality VTE Deep Vein Thrombosis/Pulmonary Embolism Present on Admission: No
[2018-05-23] MEDS: Methocarbamol 500 MG Tablet PO SCH ×2 (04:59→13:30)
[2018-05-23] MEDS: Heparin - SQ 10,000 UNITS/ML Vial SQ SCH ×2 (04:59→13:31)
[2018-05-23] MEDS: Levothyroxine 112 MCG Tablet PO SCH (05:00)
[2018-05-23] MEDS: Lisinopril 20 MG Tablet PO SCH ×2 (07:12→09:21)
[2018-05-23] MEDS: amLODIPine 5 MG Tablet PO SCH ×2 (07:12→09:20)
[2018-05-23] MEDS: Polyethylene Glycol 3350 17 GM Packet PO SCH ×2 (07:12→09:20)
[2018-05-23] MEDS: Senna/Docusate Sodium 8.6/50 MG Tablet PO SCH ×2 (07:13→09:20)
[2018-05-23] MEDS: Gabapentin 300 MG Capsule PO SCH ×4 (07:13→18:21)
--- NOTE | 2018-05-23 14:57 | P.DS ---
DS: Providers Date of admission: 05/13/18 22:53 Primary care physician: UNKNOWN Consults: 05/17/18 12:44 Consult to Hospitalist Routine Consulting Provider: Vianey Dixon Binding Printer:: Va Ornelas Reason for Consultation: post operative management Notified:: Service Spoke with:: MARY Date Notified:: 05/17/18 Time Notified:: 13:15 Comments:: Ordering Provider: ALEXIS 05/17/18 13:06 Consult to Rehab Medicine Routine Consulting Provider: Ritika Tafoya Reason for Consultation: For evaluation for transfer to in patient rehabilitation Notified:: Service Spoke with:: MARY Date Notified:: 05/17/18 Time Notified:: 13:18 Ordering Provider: ALEXIS 05/22/18 15:49 Consult to Hospitalist Routine Consulting Provider: Cheryl Hilton Reason for Consultation: 73 yo female patient s/p microdiscectomy with chronic progressive low back pain and multiple co-morbidities. Notified:: Service Spoke with:: Mary Date Notified:: 05/22/18 Time Notified:: 15:59 Ordering Provider: TYRONE Brief History from admission: I was contacted by Dr. Pérez Roberts from [facility] ER to accept in transfer, 73 yo female with an approximately 3 week history of a chronic progressive low back pain that worsened last night. [place] is s/p L4-S1 decompression and fusion about a year ago in the [facility]. She is also s/p bilateral hip surgery ( Left 06/23, Right 03/23) Doing well from all, until 3 weeks ago. She describes her LBP as radiating down BLE to level of her feet and sometimes only to the level of her knees.She relates that immobility has precluded her from emptying her bladder but denies bowel/ bladder dysfunction. In addition she is on Fentanyl patches, oxycodone and a local Pain Management Physician has her on Morphine 2 tabs po. q.8h. MRI and CT scans were performed of the lumbar spine with a reported L1/2 disc herniation. I accepted her intransfer for definitive Neurosurgical evaluation and treatment. DS: Diagnosis Discharge Diagnosis (1) Low back pain of over 3 months duration: Status: Chronic (2) Low back pain of multiple sites of spine with sciatica: Status: Chronic DS: Summary 73-year-old female with past medical history significant for hypertension, chronic back pain for which she follows up with pain management, bilateral hip surgery and cataracts who originally presented to the ER in [facility] due to progressive worsening lower back pain. Patient transferred to [facility] under neurovascular surgery care. [facility] consulted to assist with medical management postoperatively. Lower back pain with sciatica due to suspected combination facet joint and extruded disc material 4 Moshe on the left L1/2. Patient underwent left hemilaminectomy, partial medial facetectomy and microdiscectomy on 05/[address] Rubalcava. Postoperatively H&H stable, mild leukocytosis likely 2/2 surgery - WNL on recheck. Patient did experience some postoperative pain and muscle spasm which was controlled with Robaxin, Roxicodone Flexeril, gabapentin, and [place] as needed. Evaluated by physical therapy who recommends rehabilitation at discharge. Chronic conditions of hypertension and hyperlipidemia were stable while hospitalized. Home medications were continued. Patient was considered for new onset of DM due to Hemoglobin A1C 6.7. However due to her age, medication is not indicated at this time. Recommend dietary control by reduction of sugars and carbs. She should also follow-up with her primary care for monitoring. Time Spent with Patient Total time spent providing and/or coordinating discharge services: <30 min Quality: VTE Deep Vein Thrombosis/Pulmonary Embolism Present on Admission: No Exam Narrative Exam Narrative: GENERAL: Well-nourished obese female resting in bed comfortably in no acute distress. SKIN: Warm and dry. HEAD: Atraumatic. Normocephalic. CARDIOVASCULAR: Regular rate and rhythm. RESPIRATORY: No accessory muscle use. Clear to auscultation. Breath sounds equal bilaterally. GASTROINTESTINAL/: Abdomen soft, non-tender, nondistended. + Bowel sounds. MUSCULOSKELETAL: Extremities without clubbing, cyanosis, or edema. No obvious deformities. Bilateral lower extremity positive movement, sensation, good pulses. NEUROLOGICAL: Awake, alert, oriented x3. No obvious cranial nerve deficits. Motor grossly within normal limits. Normal speech. PSYCHIATRIC: Appropriate mood and affect; insight and judgment normal. Results Completed studies during hospitalization: Pending at discharge 05/17/18 14:00 Surgical [PTH] Routine Impressions ITS Impressions Hip X-Ray 05/15/18 00:00 CONCLUSION: Status post right hip arthroplasty with no underlying bony abnormality. Lumbar Spine MRI 05/16/18 07:12 CONCLUSION: 1. Extradural soft tissue mass with rim enhancement located in the left lateral spinal canal at the L2 level. Differential diagnoses would include a neurogenic tumor, atypical disc herniation or metastatic disease. 2. Clumped enhancing nerve roots in the lower thecal sac through the laminectomy defect characteristic of arachnoiditis. 3. Mild central spinal stenosis at L3-4 predominantly from hypertrophic facet arthropathy. 4. Posterior post laminectomy fluid collection characteristic of a postsurgical seroma. There is no discrete connection with the spinal canal or thecal sac. 5. Status post laminectomy and fusion from L4 through S1. Thoracic Spine MRI 05/16/18 07:12 CONCLUSION: 1. Degenerative disc changes with disc bulges at multiple levels with mass effect on the anterior thecal sac and no definite mass effect on the cord. 2. Broad-based disc osteophyte complex at T12-L1 with mass effect on the anterior thecal sac. 3. Large mass in the medial right lobe of the liver with high signal on the T2- weighted images. This is nonspecific but may represent a large cavernous hemangioma. This should be correlated with any old prior studies. Lumbar Spine X-Ray 05/17/18 00:00 CONCLUSION: Probe directed towards the L1-2 interspace Chest X-Ray 05/18/18 00:00 CONCLUSION: Stable chest without evidence of acute cardiopulmonary process. Discharge Plan Discharge Disposition Patient Disposition: Discharge to SNF Discharge Condition Condition: Stable Discharge Order Discharge Orders: Discharge Order (Routine); Ordered 05/23/18 Ordered By: Seble Ncihols Discharge Details Anticipated Discharge Date: 05/23/18 Physicians Team Primary Care Provider: UNKNOWN, Attending Provider: Vianey Dixon Other Providers: Ritika Tafoya Rxs /Orders / Referrals /Forms Prescriptions: New cyclobenzaprine 10 mg Tablet 10 mg PO Q8H PRN (Reason: Muscle Spasm) Qty: 15 RF: 0 Continue amlodipine-benazepril 5-20 mg Capsule 1 cap PO DAILY RF: 0 carisoprodol 350 mg Tablet 350 mg PO RF: 0 levothyroxine [Synthroid] 137 mcg Tablet 137 mcg PO DAILY RF: 0 atorvastatin 10 mg Tablet 10 mg PO DAILY RF: 0 gabapentin 300 mg Capsule 300 mg PO TID RF: 0 fentanyl 75 mcg/hr Patch 72 Hour 75 mcg/hr Transdermal RF: 0 Referrals: UNKNOWN, [Primary Care Provider] - See Instructions Discharge Instructions Patient Printed Instructions: Laminectomy (DC), Lumbar Disc Herniation (ED), Sciatica (ED), Low Back Strain (DC), Chronic Back Pain (GEN), Lower Back Exercises (ED), Electromyography (DC) Additional Instructions: PRESCRIPTIONS PROVIDED AT TIME OF DISCHARGE. FOLLOW UP WITH NEUROSURGERY IN 1-2 WEEKS. FOLLOW UP WITH PRIMARY CARE PROVIDER WITHIN 1 WEEK. PLEASE CALL TO SCHEDULE THESE APPOINTMENTS. YOU MAY LEAVE SURGICAL INCISION OPEN TO AIR. REPORT ANY REDNESS, DRAINAGE, SWELLING, OR FEVER TO THE SURGEON. Followup with Dr. Tafoya Rehabilitation Medicine in 10-12 weeks. [phone] to schedule. Post Discharge Care Plan Care Plan Goals: Your Health Problems: LUMBAR DISC HERNIATION Goals to Promote Your Health: * To prevent worsening of your condition * To maintain your health at the optimal level Directions to Meet Your Goals: * Take your medications as prescribed * Follow your dietary instruction * Follow activity as directed * Keep your appointments as scheduled * Take your immunizations and boosters as scheduled * If your symptoms worsen call your PCP * If no PCP go to Urgent Care or Emergency Room Smoking is dangerous to your health. Avoid second hand smoke. You may reach the 24-hour crisis hotline for domestic abuse at . Discharge Interventions Interventions: Discharge Planning - Case Management Last Done: 05/22/18 14:24
--- NOTE | 2018-05-25 17:06 | MP ---
cc: Luciano Rubalcava MD DATE OF OPERATION: 05/23/2018 PREOPERATIVE DIAGNOSIS: Left L1-L2 facet cyst and herniated disk. POSTOPERATIVE DIAGNOSIS: Left L1 L2 facet cyst and herniated disk. PROCEDURE PERFORMED: 1. Left hemilaminectomy. 2. Partial medial facetectomy. 3. Microdiskectomy with microscope. ANESTHESIA: General endotracheal anesthesia. CO-SURGEON: Pancho Stafford MD ESTIMATED BLOOD LOSS: Less than 75 mL IV FLUIDS: 1600 mL URINE OUTPUT: 150 mL PATHOLOGY: None. COMPLICATIONS: None. CONDITION: Awake, alert, following commands, moving all 4 extremities well, extubated, and taken to the recovery room. FINDINGS: Large old extruded disk material, multiple fragments with large adherent scar formation between the ligamentum flavum, dura and disk. Possibly an intradural disk herniation component as well. INDICATIONS: The patient is a pleasant 73-year-old female who was transferred [place] [facility] ER with approximately 3-week history of chronic progressive low back pain, worse on the night prior to admission. She is status post L4-S1 decompression and fusion about a year ago in the [facility]. She is also status post bilateral hip surgery (left 06/2017, right 03/2018), doing well from all until 3 weeks ago. She describes her low back pain is radiating down both bilateral lower extremities to the level of her feet, sometimes going to the level of her knees. She relates immobility has precluded her from emptying her bladder, but denies bowel or bladder dysfunction. She is on fentanyl patches, oxycodone and local pain management. Physician has her on morphine 2 tabs p.o. q.8 hours. The MRI, CT scans that were performed at the outside hospital were clear. The imaging studies were repeated, which showed a possible synovial facet cyst and/or with extruded disk material. Given the patient's symptoms, as well as imaging studies, we decided we would take her to the OR for exploration and definitive treatment. Risks, benefits, and options were reviewed with the patient and her ex-. They include, but are not limited to infection, CSF leak, hemorrhage, reoperation, nerve injury, spinal cord injury, bowel or bladder dysfunction, failure to relieve symptoms exacerbation of symptoms, reoperation, possible were all explained. They both indicated they understood and agreed with the plan of care. All questions were answered today. PROCEDURE IN DETAIL: The patient was taken to the operating room from the holding room. After peripheral IVs were placed, she was endotracheally intubated and general endotracheal anesthesia then ensued. Next, she was placed on the Navneet table in the prone position with all pressure points padded. The lumbosacral region of the spine was then shaved, prepped and draped in usual sterile fashion. I reincorporated the superior aspect of the incision with a new incision, which extended from approximately the T12 spinous process to the L3 spinous process. This was infiltrated with 1% lidocaine with epinephrine, 20 mL. Next, a 10 blade was brought in the field, cutting sharply down to the lumbodorsal fascia. Hemostasis was achieved with bipolar electrocautery device. The fascia was then incised with the Bovie electrocautery and a Santos periosteal elevator, sweeping the paraspinal muscles off the spinous process and lamina on the left side. AP and lateral fluoroscopy were used to confirm the L1, 2, and 3 intervertebral disk space. Once we had confirmation, the microscope was brought into the field. High speed air drill was used to perform a formal hemilaminectomy. Then, 2 and 3 mm Kerrison punches were used to complete this. The quite thickened and adherent yellow ligament was identified. This was removed with a combination of 1, 2 and 3 mm Kerrison punches and a #11 scalpel blade. Almost immediately a large fragment of extruded disk material as well as degenerative disk material was identified adherent to the underlying yellow ligament, and as small free fragments of degenerative disk material were identified. One component appeared to be either adherent to the dura or had an intradural component. A potential durotomy was then identified. Nerve roots were contained with a small chris. We completed the rest of the diskectomy including removal of any disk material that was freed with the pituitary rongeurs in the intervertebral disk space. There was also an additional adherent fragment with the medial facet joint. This was resected with 2 and 3 mm Kerrison punches, performing a partial medial facetectomy. This was all done under direct microscopic visualization. A small amount of CSF was drained. A small piece of DuraGen was used to cover the rent and the DuraSeal was then used to cover this as well. At the end of this part of the procedure, there was no evidence of CSF leak. Copious irrigation ensued with antibiotic irrigation and with Betadine. The incision was then closed in anatomical layers using 0 interrupted Vicryl sutures for the deep muscle and fascia, followed by 2-0 inverted interrupted Vicryl suture for the superficial fascia and dermis, followed by cordell for skin. A Telfa and Tegaderm bandage was used for the dressing of the end of the operation. All sponge and needle counts were correct. The patient tolerated the procedure and was taken back to the recovery room, extubated, awake, alert, following commands, moving all 4 extremities well. No change from her preoperative state. MD JOHN Stallworth/ara/neeta , 02:52 PM , 03:08 PM
== END 2018-05-23 20:00 ==
LOC: N06 22:53
PROVIDERS: ADMIT Hospitalist; ATTEND Hospitalist
DX: Z79.890 Hormone replacement therapy; G03.9 Meningitis, unspecified; M48.061 Spinal stenosis, lumbar region without neurogenic claudication; G97.63 Postprocedural seroma of a nervous system organ or structure following a nervous system procedure; I10 Essential (primary) hypertension; G89.29 Other chronic pain; Z80.3 Family history of malignant neoplasm of breast; M25.78 Osteophyte, vertebrae; Z80.1 Family history of malignant neoplasm of trachea, bronchus and lung; Z79.899 Other long term (current) drug therapy; Z98.1 Arthrodesis status; M62.830 Muscle spasm of back; E11.9 Type 2 diabetes mellitus without complications; M85.48 Solitary bone cyst, other site; M54.40 Lumbago with sciatica, unspecified side; M51.26 Other intervertebral disc displacement, lumbar region; E78.5 Hyperlipidemia, unspecified; M25.551 Pain in right hip; Z96.659 Presence of unspecified artificial knee joint; Z87.891 Personal history of nicotine dependence; E66.01 Morbid (severe) obesity due to excess calories; E89.0 Postprocedural hypothyroidism; D18.09 Hemangioma of other sites; R16.0 Hepatomegaly, not elsewhere classified; Z68.41 Body mass index [BMI] 40.0-44.9, adult; R26.9 Unspecified abnormalities of gait and mobility; Z96.643 Presence of artificial hip joint, bilateral